=== PATIENT | male | born 1990 | race Hispanic/Latino ===

== ENCOUNTER 2024-01-09 18:05 | Emergency (ER) | payer SELFPAY ==
[2024-01-09 18:05] VITALS: BP 129/87; PULSE 68; RESP 16; TEMP 37.1; O2SAT 100
[2024-01-09 18:16] LABS: Glucose Point of Care 92 mg/dl (65-105)
--- NOTE | 2024-01-09 18:22 | ED.NEUROSD ---
HPI - Neuro Symptoms/Deficit General Chief Complaint: Headache Stated Complaint: Headache Time Seen by Provider: 01/09/24 18:05 Source: patient and family Mode of arrival: ambulatory Limitations: no limitations History of Present Illness HPI Narrative: Manual is a 33-year-old male patient presenting to the clinic today with complaints left posterior headache radiating into the neck, facial numbness, slurred speech, asymmetric smile, unable to close left eye, and eye twitching. He reports headache started 2 days ago however today around noon he developed numbness in the left side of his face with the other symptoms listed above. Reports eyes are watering. He rates his pain currently a 7/10. Daughter states he has been drooling from the left side when he drinks. Denies any dizziness, chest pain, or shortness of breath. Blood sugar was checked in the clinic and was 92. Patient denies any past medical or surgical history. Does not take any home medications. Daughter is interpreting for the patient. Related Data Allergies Allergy/AdvReac Type Severity Reaction Status Date / Time No Known Allergies Allergy Verified 01/09/24 18:29 Review of Systems Review of Systems: Pertinent positives per HPI. Patient denies any fever, chills, rash, dizziness, cough, runny nose, sore throat, shortness of breath, chest pain, palpitations, nausea, vomiting, diarrhea, constipation, abdominal pain, or any urinary issues. PMFSH Comments At the time of my signature, I reviewed and agree with the nursing past medical, surgical, social, and family history. There is no relevant family history pertinent to the patient complaint. Exam Narrative: General: Well-developed, well nourished, in no apparent distress Head: Normocephalic, atraumatic, left-sided facial droop with decreased sensation to the left side of the face-reports it feels numb when compared to the right side of his face, unable to close left eye tightly, unable to wrinkle the left-side of forehead Eyes: Pupils equally round and reactive to light bilaterally, EOM intact, sclera and conjunctive clear, no discharge, lids normal Ears: TMs intact and clear, ear canals clear, no drainage, grossly hearing normal. Nose: Nares patent, no discharge, no inflammation, no sinus tenderness. Mouth: Oropharynx without lesions or masses, good dentition, MMM. Tongue midline, even rise and fall of uvula Neck: Supple, trachea midline, no enlargement of anterior or posterior cervical nodes, no thyroid masses or goiter palpable. Cardio: Regular rate and rhythm, s1 and s2 normal, no murmur appreciated. Resp: Clear to auscultation bilaterally anteriorly and posteriorly, no rhonchi, rales, wheezing or rubs Musculoskeletal: No deformity, non-tender to palpation, grossly normal range of motion, muscle strength strong and equal, peripheral pulse strong, no edema, no cyanosis, normal gait and station Neuro: Alert and oriented x4 with normal speech, no focal deficits, cranial nerves I through XII intact, muscle strength 5 out of 5, sensation intact bilaterally, negative Romberg test Course Course Emergency Course: Portions of this record may have been created with voice recognition software. Level of Care: Express Care Visit Vital Signs Vital signs: Vital signs reviewed MDM - Neuro Symptoms/Deficit MDM Narrative Medical decision making narrative: At the time of visit patient is resting comfortably on the exam table. Patient appears to be nontoxic. Labs: Bedside glucose was 92 EKG: EKG shows normal sinus rhythm with heart rate of 85 beats per minute without ST elevation, depression, or T-wave inversion. Plan: Recommend transfer to the emergency room for further evaluation to rule out CVA, migraine, brain mass, Cook's palsy, or other etiology. Patient would like to be transferred to the [place] emergency room. Contacted Dr. Barroso at [facility] and she accepts patient for transfer. Patient t
--- NOTE | 2024-01-09 18:32 | ECG_ITS ---
SEE SCANNED COPY FOR CONFIRMED REPORT MTDD
== END 2024-01-09 18:20 | disposition short-term general hospital (02) ==
PROVIDERS: Emergency Provider Nurse Practitioner Family
DX: R47.81 Slurred speech (principal); R51.9 Headache, unspecified; R29.810 Facial weakness
CPT/HCPCS: 82948; 93005; 99213; G0463

== ENCOUNTER 2024-01-09 18:42 | Emergency (ER) | payer SELFPAY ==
--- NOTE | ~2024-01-09 | CT_ITS ---
EXAMINATION: CT brain wo con DATE: 01/09/2024 21:21 INDICATION: Headache and facial droop. TECHNIQUE: Computed tomography (CT) of the head was performed without intravenous contrast. Sagittal and coronal reconstructions were performed. The mA was adjusted according to patient size. Iterative reconstruction technique was employed. The dose-length product was 681.00 mGy-cm. COMPARISON: None FINDINGS: No acute intracranial hemorrhage, acute infarction or abnormal extra axial fluid collection. Ventricl es are normal and symmetric. No mass/mass effect. The orbits, paranasal sinuses and mastoid air cells are normal. IMPRESSION: 1. Normal head CT. Reviewed, dictated and finalized at location A. IMPRESSION: 1. Normal head CT.
[2024-01-09 18:42] VITALS: BP 144/85; PULSE 75; RESP 18; TEMP 36.5; O2SAT 97
[2024-01-09 20:25] VITALS: BP 142/86; PULSE 77; RESP 16; O2SAT 99
--- NOTE | 2024-01-09 20:54 | ECG_ITS ---
SEE SCANNED COPY FOR CONFIRMED REPORT MTDD
[2024-01-09 21:08] VITALS: PULSE 68; RESP 14; O2SAT 97
[2024-01-09 21:10] LABS: Basophils Percent Auto 0.1 % (0.2-1.2); Eosinophils Absolute Auto 0.1 K/mm3 (0-0.3); Eosinophils Percent Auto 1.3 % (0-4.4); Immature Granulocyte Absolute 0.01 K/mm3 (0.00-0.031); Immature Granulocyte Percent A 0.1 % (0-0.5); Lymphocytes Absolute Auto 2.15 K/mm3 (0.9-3.2); Lymphocytes Percent Auto 30.9 % (18.3-44.2); Mean Corpuscular HGB Conc 35.4 g/dl (32-36); Mean Corpuscular Hemoglobin 30.7 pg (26-34); Mean Corpuscular Volume 86.8 fl (80-100); Mean Platelet Volume 10.1 fl (7.4-10.4); Monocytes Absolute Auto 0.4 K/mm3 (0.1-0.6); Monocytes Percent Auto 6.2 % (2.6-8.5); Neutrophils Absolute Auto 4.3 K/mm3 (1.3-6.7); Neutrophils Percent Auto 61.4 % (45.5-73.1); Platelet Count Result 212 k/mm3 (150-375); Red Blood Count 5.53 M/mm3 (4.6-6.20); Red Cell Distribution Width 12.6 % (11.5-14.5)
[2024-01-09 21:22] LABS: Alanine Aminotransferase 127 U/L (6-50); Albumin Level 4.5 g/dL (3.5-5.1); Alkaline Phosphatase 74 U/L (38-126); Anion Gap 9 mmol/L (4-12); Aspartate Amino Transferase 65 U/L (17-59); Bilirubin,Total 0.9 mg/dL (0.2-1.3); Blood Urea Nitrogen 13 mg/dL (9-20); Calcium 8.8 mg/dL (8.4-10.2); Carbon Dioxide 25 mmol/L (22-30); Chloride 106 mmol/L (98-107); Estimated CRCL calculation 119 ml/min; Estimated Glomerular Filt Rate > 60; Glucose 102 mg/dL (65-110); Potassium 3.7 mmol/L (3.4-5.0); Sodium 140 mmol/L (137-145)
[2024-01-09 21:26] LABS: Partial Thromboplastin Time 32.6 Seconds (22.3-36.8)
[2024-01-09 21:32] LABS: Troponin I < 0.012 ng/mL (0.000-0.034)
--- NOTE | 2024-01-09 21:40 | ED.NEUROSD ---
HPI - Neuro Symptoms/Deficit General Chief Complaint: Neuro Symptoms/Deficit Stated Complaint: facial droop, since noon Time Seen by Provider: 01/09/24 20:54 Source: patient Mode of arrival: ambulatory Limitations: language barrier (patient's daughter in interpreting, which he prefers) History of Present Illness HPI Narrative: This is a 33 year old male that presents to the ER for left sided facial weakness. Ongoing since about noon today. Reports he has had a headache the last couple of days. He was seen at urgent care and sent to the ER for further evaluation. Denies vision changes, other focal numbness or weakness. Related Data Allergies Allergy/AdvReac Type Severity Reaction Status Date / Time No Known Allergies Allergy Verified 01/09/24 20:26 Review of Systems Review of Systems: CONSTITUTIONAL: Denies fever EYES: Denies visual changes GASTROINTESTINAL: Denies vomiting NEUROLOGIC: Reports headache, numbness, and weakness. All systems reviewed & are unremarkable except as noted in HPI and below PMFSH Past Medical History Medical History (Updated 01/09/24 @ 22:42 by Rosa Maria Cho PA-C) No active medical problems Social History Social History (Updated 01/09/24 @ 21:51 by Rosa Maria Cho PA-C) Smoking status: Current some day smoker Exam Narrative: GENERAL: Well-appearing, well-nourished, and in no acute distress. HEAD: Normocephalic, atraumatic. EYES: PERRLA and EOMI. ENT: Nares clear, no rhinorrhea or epistaxis. Mucous membranes moist. Oropharynx without tonsillar hypertrophy exudate or other lesions. Bilateral TMs pearly huitron non-bulging NECK: Supple. No adenopathy or masses. CHEST: Clear to auscultation. No respiratory distress. No wheezes rales or rhonchi HEART: Regular rate and rhythm. No murmur heard. Normal peripheral pulses. EXTREMITIES: Normal range of motion. No edema. SKIN: Warm, dry, no rash. NEURO: Alert and oriented x3. CN II-XII intact, with exception of CN VII. Inability to raise the eyebrow on the left. Difficulty blinking on the left PSYCH: Normal mood and affect Course Course Emergency Course: Patient and family updated on workup and agree with plan of care Vital Signs Vital signs: Vital Signs Temperature 97.7 F 01/09/24 18:42 Pulse Rate 75 01/09/24 18:42 Respiratory Rate 18 01/09/24 18:42 Blood Pressure 144/85 H 01/09/24 18:42 Pulse Oximetry 97 01/09/24 18:42 Oxygen Delivery Room Air 01/09/24 18:42 Temperature 97.7 F 01/09/24 18:42 Pulse Rate 67 01/09/24 22:22 Respiratory Rate 18 01/09/24 22:22 Blood Pressure 122/76 01/09/24 22:22 Pulse Oximetry 100 01/09/24 22:22 Oxygen Delivery Room Air 01/09/24 18:42 MDM - Neuro Symptoms/Deficit MDM Narrative Medical decision making narrative: Patient presents to the emergency department for left-sided facial weakness ongoing since about noon today. Reports a prodromal headache. 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 No other focal deficits. CBC without concerning findings. Metabolic panel with mild transaminitis. CT brain is normal. Patient and family updated on workup and agree with plan of care. Will be started on antiviral and glucocorticoids. He is to follow up with PCP. He was given warnings to return to the ER Differential Diagnosis Differential diagnosis: Likely cerebrovascular accident and other (Mcintosh palsy) Lab Data Attestation: I reviewed the patient's lab results. 01/09/24 21:04 01/09/24 21:04 Labs: Lab Results 01/09/24 Range/Units 21:04 WBC 7.0 (4.5-10.0) K/mm3 RBC 5.53 (4.6-6.20) M/mm3 Hgb 17.0 (14.0-18.0) g/dL Hct 48.0 (42.0-52.0) % MCV 86.8 (80-100) fl MCH 30.7 (26-34) pg MCHC 35.4 (32-36) g/dl RDW 12.6 (11.5-14.5) % Plt Count 212 (150-375) k/mm3 MPV 10.1 (7.4-10.4) fl Immature Gran % (Auto) 0.1 (0-0.5)
[2024-01-09 22:22] VITALS: BP 122/76; PULSE 67; RESP 18; O2SAT 100
[2024-01-09] MEDS: valACYclovir HCL 500 MG TABLET 1000 MG PO (23:00)
[2024-01-09] MEDS: predniSONE 20 MG TABLET 60 MG PO (23:01)
== END 2024-01-09 23:08 | disposition home or self-care (01) ==
PROVIDERS: Emergency Provider Physician Assistant; PCP Physician Assistant
DX: G51.0 Bell's palsy (principal); R74.01 Elevation of levels of liver transaminase levels
CPT/HCPCS: 36415; 70450; 80053; 82948; 84484; 85025; 85610; 85730; 93005; 99284; A9270; J7512

== ENCOUNTER 2025-03-16 10:24 | Inpatient (IN) | payer SELFPAY ==
[2025-03-16] VITALS (10 sets, daily range): BP systolic 120–138; BP diastolic 58–89; PULSE 93–108; RESP 16–19; TEMP 36.5–37.1; O2SAT 93–98; BMI 32.8
--- NOTE | ~2025-03-16 | US_ITS ---
EXAM: RENAL ULTRASOUND HISTORY: renal failure COMPARISON: None FINDINGS: Prominent pyramids are detected bilaterally without yasmany hydronephrosis. RIGHT KIDNEY: 12.6 x 4.9 x 6.0 cm. The parenchyma of the right kidney is increased in echogenicity. No bulky renal calculi. LEFT KIDNEY: 13.6 x 7.4 x 5.0 cm No renal calculi. The parenchyma of the left kidney is increased in echogenicity. BLADDER: Only minimally distended, with wall thickening (likely secondary to underdistention). Both u reteral jets were visualized. IMPRESSION: No hydronephrosis or renal calculi. Findings suggesting medical renal disease. Both ureteral jets are visualized. Reviewed, dictated and finalized at location A.
--- NOTE | ~2025-03-16 | CT_ITS ---
CLINICAL INDICATION: Epigastric pain COMPARISON: None. TECHNIQUE: Multiple contiguous axial images of the abdomen and pelvis were performed without the admi nistration of intravenous contrast The dose-length product (DLP) was 831.47 mGy-cm. Automated exposure control and iterative reconstruction technique were employed. FINDINGS/OBSERVATIONS: Visualized lower thorax: Bibasilar atelectasis. The remainder of the bilateral lung bases are clear. The heart is of normal size, without pericardial effusion. Small hiatal hernia is present. Liver: The liver demonstrates homogeneous attenuation and is enlarged measuring 20 cm in longitudinal dimens ion. Gallbladder and biliary system: The gallbladder is only minimally distended, and otherwise unremarkable. Pancreas: Loss of fatty lobulation of the pancreas, which may represent pancreatitis (in the appropri ate clinical setting), for which clinical correlation is needed. Spleen: The spleen demonstrates homogeneous attenuation and is enlarged measuring 14.3 cm in longitudinal dim ension. Kidneys: 8 mm nonobstructing calculus within the interpolar region of the right kidney. No hydronephrosis or additional renal calculi are detected bilaterally. Adrenal glands: Unremarkable. Gastrointestinal tract: A small amount of oral contrast is identified dependently within the stomach. Appendix: The air-filled appendix is of normal caliber (axial series, images 85 through 106). Vasculature: Unremarkable. Lymph nodes: Limited evaluation without intravenous contrast. Pelvic structures: The bladder is distended, and otherwise unremarkable. The prostate gland is not enlarged. Body wall and musculoskeletal: Small fat-containing umbilical hernia. No significant degenerative disease within the lower thoracic or lumbosacral spine. IMPRESSION: Loss of fatty lobulation of the pancreas which may represent acute pancreatitis (in the appropriate c linical setting). No discrete signs of inflammation within the lesser sac. Hepatosplenomegaly. Nonobstructing 8 mm right renal stone. Reviewed, dictated and finalized at location A. IMPRESSION: Loss of fatty lobulation of the pancreas which may represent acute pancreatitis (in the appropriate clinical setting). No discrete signs of inflammation withi n the lesser sac. Hepatosplenomegaly. Nonobstructing 8 mm right renal stone.
--- NOTE | ~2025-03-16 | XR_ITS ---
EXAMINATION: XR chest 2V DATE: 03/18/2025 18:01 INDICATION: Bacteremia TECHNIQUE: PA and lateral views of the chest were obtained. COMPARISON: CT dated 03/16/2025 FINDINGS: Mildly decreased lung volumes with minimal streaky bibasilar atelectasis. No other airspace opacities , pulmonary edema, pleural effusion or pneumothorax. The cardiomediastinal silhouette is normal. Mild thoracic dextrocurvature. IMPRESSION: 1. Small lung volumes with minimal bibasilar atelectasis. Reviewed, dictated and finalized at location A.
--- NOTE | ~2025-03-16 | US_ITS ---
US right upper quadrant INDICATION: Abdomen pain PROCEDURE: Realtime right upper abdominal ultrasound. COMPARISON: No prior studies for comparison. FINDINGS: Pancreas not visualized due to bowel gas. Liver echotexture is increased, consistent with fatty infiltration. There is normal directional flow in the portal vein. Gallbladder contains sludge. No gallstones, gallbladder wall thickening or pericholecystic fluid. Co mmon bile duct measures 3 mm. No sonographic Driscoll's sign. IMPRESSION: 1: Gallbladder sludge. 2: Fatty infiltration of the liver. Reviewed, dictated and finalized at location B.
--- NOTE | ~2025-03-16 | MR_ITS ---
EXAMINATION: MR MRCP wo/w con/w 3D wo ind DATE: 03/19/2025 11:14 INDICATION: Pancreatitis TECHNIQUE: Magnetic resonance imaging (MRI) of the abdomen was performed without and with 20 mL Multi aura intravenous contrast. Sequences included coronal T2-weighted SS-FSE, coronal T2-weighted FS SS- FSE, coronal T2-weighted FS FIESTA, axial T2-weighted FS FIESTA, axial T2-weighted FIESTA, sagittal T 2-weighted SS-FSE, axial T1-weighted dual-echo FSPGR, axial T2-weighted SS-FSE, axial T1-weighted LAV A, axial T2-weighted STIR FSE. Thick-slab T2-weighted FRFSE-XL images were obtained for magnetic reso nance cholangiopancreatography (MRCP). Rotating maximum intensity projection 3-D reconstructions of t he volumetric data were created by the technologist. Postcontrast sequences included a time course of axial T1-weighted LAVA. COMPARISON: CT abdomen pelvis dated 03/16/2025 FINDINGS: ABDOMEN MRI: Heart size is normal. No pericardial or pleural effusion. Mild discoid atelectasis at the dependent l ower lobes. Liver, gallbladder, spleen, pancreas, bilateral adrenal glands and right kidney are patricia l. 6 mm T2 hyperintense nonenhancing left renal cyst. Bowels including the appendix are normal. Small fat-containing umbilical hernia. No pathologically enlarged abdominal or upper pelvic lymphadenopath y. Mild to moderate disc height loss with fibrovascular degenerative endplate changes at L4-L5. Disc desiccation and mild disc height loss at T12-L1 and without significant disc height loss at L5-S1. [place] ne marrow signal is otherwise normal throughout. There are numerous subcentimeter enhancing subcutane ous nodules distribution circumferentially throughout the abdominal wall. ABDOMEN MRCP: Normal caliber common bile duct measuring 2 mm. No intrahepatic biliary ductal dilation. Main pancrea tic duct is also normal in caliber measuring up to a maximum 1 mm. No cholelithiasis or choledocholit hiasis. IMPRESSION: 1. Normal liver, gallbladder and pancreas with no gallstones and no intra or extrahepatic biliary or pancreatic ductal dilation. 2. Small fat-containing umbilical hernia. 2. Numerous nonspecific small enhancing subcutaneous nodules throughout the abdominal wall which has a wide differential including infectious inflammatory etiologies or neoplasm either benign such as ne urofibromas or malignant such as lymphoma or metastatic disease. Reviewed, dictated and finalized at location A. IMPRESSION: 1. Normal liver, gallbladder and pancreas with no gallstones and no intra or ex trahepatic biliary or pancreatic ductal dilation. 2. Small fat-containing umbilical hernia. 2. Numerous nonspecific small enhancing subcutaneous nodules throughout the abd ominal wall which has a wide differential including infectious inflammatory amy ologies or neoplasm either benign such as neurofibromas or malignant such as ly mphoma or metastatic disease.
--- NOTE | 2025-03-16 10:36 | PC.NURSE ---
Pt states unable to urinate at this time
--- OUTSIDE RECORDS SUMMARY | 2025-03-16 10:36 | XMS_ITS | Data Portability ---
Author Organization [facility] Address [address] [place] [address] Assessment No assessment recorded. Plan of Treatment Reminders Order Date Submit Date Provider Last Modified By Organization Details Last Modified Time Details Appointments None recorded. Lab None recorded. Referral None recorded. Procedures None recorded. Surgeries None recorded. Imaging None recorded. Medication Orders ondansetro n 8 mg disintegra ting tablet 2024 025 [facility] [address] [place], [address], 17:08:53 dicyclomin e 20 mg tablet 2024 025 [facility] [address] [place], [address], 17:07:02 ondansetro n 8 mg disintegra ting tablet 2024 025 [email or web address] Not available 17:36:31 Patient TargetsNo targets recorded. Patient Instructions Encounter Date Encounter Id Patient Instructions Last Modified By Organization Details Last Modified Time 03/13/2025 [id number] A healthy lifestyle: care instructions [email or web address] Not available 03/13/2025 17:05:27 Push clear fluids; drink slowly and do not drink extremely hot or cold beverages as this can cause increase in gastric upset. If you throw up; use the medication prescribed, then don't eat or drink anything for 30 minutes. Take sips of clear fluid then advance as tolerated. May start on soft foods such as mac n cheese, mashed potatoes or puddings. Medication as prescribed. Please follow up with your primary medical provider. [email or web address] Not available 03/13/2025 17:05:55 Reason for Referral None Reported. Medical Equipment None Reported. Allergies No known drug allergies Medications Name Sig Start Date Stop Date Status Note LastModified by Organization Details LastModified Time ondansetron 8 mg disintegrati ng tablet Place 1 tablet every 6 hours by translingua l route as needed for 10 days, for nausea and vomiting. 2024 active Not Available Not Available Not Avai lable dicyclomine 20 mg tablet Take 1 tablet 4 times a day by oral route as needed, for abdominal colic. 2024 active Not Available Not Available Not Avai lable Vitals Date Recorded Body weight Body temperature Respiratory rate Heart rate Oxygen saturation Oxygen saturation in Arterial blood by Pulse oximetry Body mass index (BMI) Body height Systolic And Diastolic Provider Name and Address Organization Details Last Updated DateTime 90763.9 4 g 98.7 [degF] 20 /min 102 /min 99 % 99 % 33.5 kg/m2 171.45 cm 109/82 mm[Hg] Christi Laws MA [facility] 16:48:12 Social History Question Answer Notes LastModified by Organizat ion Details LastModified Time Tobacco Smoking Status Never Smoker Christi Laws MA null, [facility] 03/13/2025 16:49:26 What Was The Date Of Your Most Recent Tobacco Screening? 03/13/2025 [email or web address] Information not available 03/13/2025 Sex: Unknown Functional Status None recorded. Mental Status None recorded. Family History Nothing Reported. Medical History No medical history recorded. Past Encounters Encounter ID Performer Location Encounter Start Date Encounter Closed Date Diagnosis/Indication Diagnosis SNOMED-CT Code Diagnosis ICD10 Code Diagnosis Note [id number] JEANNE MARIE MD COUNTS INCLUDE 234 BEDS AT THE [facility] [address] [place] [address] 03/13/2025 16:40:45 03/15/2025 10:50:48 Obese class I [id number] 38056 E66.811 E66.3 Nausea and vomiting 1691999 R11.2 Was given PO challenge after receiving Zofran. Tolerating fluids at this time. Would like to go home. Diarrhea 38662837 R19.7 Abdominal pain 34515880 R10.84 Viral gastroenteritis 11 [id number] A08.4 Health Concerns Section Related Observation LastModified by Organization Gudelia henderson LastModified Time None Recorded Concern Status LastModified by Organization Details LastModified Time None Recorded Advance Directives Directive None Recorded Payers Insurance Date Sequence Insurance Name Policy Number Policy Ash Covered Member ID Ash Member ID Guarantor Name 03/13/2025 SLIDING FEE SCHEDULE - DISCOUNT Satnam Case 03/13/2025 1 *SELF PAY* Jamal Case
--- NOTE | 2025-03-16 11:02 | PC.NURSE ---
Report given to Magda Garcia RN all questions answered
[2025-03-16 11:09] LABS: Alanine Aminotransferase 59 U/L (6-50); Albumin Level 4.7 g/dL (3.5-5.1); Alkaline Phosphatase 73 U/L (38-126); Anion Gap 19 mmol/L (4-12); Aspartate Amino Transferase 61 U/L (17-59); Bilirubin,Total 1.9 mg/dL (0.2-1.3); Blood Urea Nitrogen 98 mg/dL (9-20); Calcium 8.5 mg/dL (8.4-10.2); Carbon Dioxide 25 mmol/L (22-30); Chloride 76 mmol/L (98-107); Estimated CRCL calculation 27 ml/min; Estimated Glomerular Filt Rate 17; Glucose 151 mg/dL (65-110); Potassium 2.6 mmol/L (3.4-5.0); Sodium 120 mmol/L (137-145); Total Protein 9.0 g/dL (6.3-8.2)
[2025-03-16] MEDS: SODIUM CHLORIDE 0.9% IV 1,000 ML 999 ML IV CONT ×3 (11:13→12:14)
[2025-03-16] MEDS: ONDANSETRON INJ 4 MG/2 ML VIAL IV PUSH (11:15)
[2025-03-16] MEDS: MORPHINE SULFATE (*CRX) 4 MG/ML INJ IV PUSH (11:15)
[2025-03-16 11:16] LABS: Hematocrit 55.2 % (42.0-52.0); Hemoglobin 20.6 g/dL (14.0-18.0); Mean Corpuscular HGB Conc 37.3 g/dl (32-36); Mean Corpuscular Hemoglobin 30.3 pg (26-34); Mean Corpuscular Volume 81.3 fl (80-100); Platelet Count Result 254 k/mm3 (150-375); Red Blood Count 6.79 M/mm3 (4.6-6.20); White Blood Count 10.1 K/mm3 (4.5-10.0)
[2025-03-16 11:33] LABS: Lipase 2516 U/L (23-300)
[2025-03-16] MEDS: KCL 20 MEQ/SW 100 ML 100 ML 50 MEQ IVPB ×2 (11:33→15:53)
--- NOTE | 2025-03-16 11:35 | PC.NURSE ---
Ultrasound at bedside
[2025-03-16 11:41] LABS: Band Neutrophils Percent 21 % (0-6); Lymphocytes Absolute Manual 0.80 K/mm3 (1.1-4.5); Lymphocytes Percent Manual 8 % (18-44); Monocytes Absolute Manual 1.11 K/mm3 (0.1-0.90); Monocytes Percent Manual 11 % (3-9); Neutrophils Absolute Manual 8.18 K/mm3 (1.3-6.7); Neutrophils Percent Manual 60 % (46-73); Total Cells Counted 100
[2025-03-16 11:42] LABS: Schistocytes None Seen
--- NOTE | 2025-03-16 11:57 | ED_ITS ---
HPI - Nausea/Vomiting/Diarrhea General Chief complaint: Abdominal Pain Stated complaint: n/v/d Time Seen by Provider: 03/16/25 10:37 History of Present Illness HPI Narrative: Patient is a 34-year-old male who presents to the ER with nausea and vomiting over last 5 days. Three episodes of diarrhea a day. Has epigastric discomfort without radiation. Cannot identify aggravating or alleviating factors. Has been on dicyclomine and Zofran that were prescribed outpatient without improvement of symptoms. Related Data Allergies Allergy/AdvReac Type Severity Reaction Status Date / Time No Known Allergies Allergy Verified 03/16/25 10:32 [facility] Past Medical History Medical History (Updated 03/16/25 @ 17:12 by Galen Zaidi MD) No active medical problems Social History Social History (Updated 01/09/24 @ 21:51 by Rosa Maria Cho PA-C) Smoking status: Current some day smoker Exam 2 Narrative: GENERAL: Well-appearing, well-nourished, and in no acute distress. HEAD: Normocephalic, atraumatic. ENT: Mucous membranes moist. NECK: Supple. CHEST: Clear to auscultation. No respiratory distress. HEART: Regular rate and rhythm. Normal peripheral pulses. ABDOMEN: Soft, moderate discomfort with palpation to epigastrium and RUQ, nondistended. EXTREMITIES: Normal range of motion. No edema. SKIN: Warm, dry, no rash. NEURO: Alert and oriented x3. PSYCH: Normal mood and affect. Course Course Emergency Course: GI and General surgery consulted. Patient educated on diagnosis and treatment plan. Mild improvement in pain with morphine. Patient will be kept NPO and hydrated. Will receive IV potassium. General surgery requests noncontrast CT for continued evaluation of the abdomen. Suspect renal failure be prerenal due to dehydration. Patient started on broad-spectrum antibiotics for possible cholecystitis. No recommendation for MRCP at this time. Vital Signs Vital signs: Vital Signs Temperature 97.8 F 03/16/25 10:27 Pulse Rate 108 H 03/16/25 10:27 Respiratory Rate 17 03/16/25 10:27 Blood Pressure 136/89 03/16/25 10:27 Pulse Oximetry 98 03/16/25 10:27 Oxygen Delivery Room Air 03/16/25 10:27 Temperature 97.8 F 03/16/25 10:27 Pulse Rate 94 03/16/25 14:30 Respiratory Rate 19 03/16/25 14:30 Blood Pressure 137/81 03/16/25 14:30 Pulse Oximetry 96 03/16/25 14:30 Oxygen Delivery Room Air 03/16/25 10:27 MDM - Nausea/Vomiting/Diarrhea Lab Data 03/16/25 10:36 03/16/25 10:36 Labs: Lab Results 03/16/25 03/16/25 03/16/25 Range/Units 10:36 12:23 14:15 WBC 10.1 H (4.5-10.0) K/mm3 RBC 6.79 H (4.6-6.20) M/mm3 Hgb 20.6 H D (14.0-18.0) g/dL Hct 55.2 H (42.0-52.0) % MCV 81.3 (80-100) fl MCH 30.3 (26-34) pg MCHC 37.3 H (32-36) g/dl RDW 12.2 (11.5-14.5) % Plt Count 254 (150-375) k/mm3 MPV 11.1 H (7.4-10.4) fl Immature Gran % (Auto) Not Reportable Neut % (Auto) Not Reportable Lymph % (Auto) Not Reportable Kleberg % (Auto) Not Reportable Eos % (Auto) Not Reportable Baso % (Auto) Not Reportable Lymph # (Auto) Not Reportable Kleberg # (Auto) Not Reportable Eos # (Auto) Not Reportable Baso # (Auto) Not Reportable Abs Immat Gran (auto) Not Reportable Absolute Neuts (auto) Not Reportable Absolute Nucleated RBC Not Reportable Total Counted 100 Neutrophils % (Manual) 60 (46-73) % Band Neutrophils % 21 H (0-6) % Lymphocytes % (Manual) 8 L (18-44) % Monocytes % (Manual) 11 H (3-9) % Nucleated RBC % Not Reportable Abs Neuts (Manual) 8.18 H (1.3-6.7) K/mm3 Abs Lymphs (Manual) 0.80 L (1.1-4.5) K/mm3 Abs Monocytes (Manual) 1.11 H (0.1-0.90) K/mm3 Platelet Estimate Adequate (Adequate) Schistocytes None seen Sodium 120 L (137-145) mmol/L Potassium 2.6 L* (3.4-5.0) mmol/L Chloride 76 L (98-107) mmol/L Carbon Dioxide 25 (22-30) mmol/L Anion Gap 19 H (4-12) mmol/L BUN 98 H D (9-20) mg/dL Creatinine 4.05 H (0.7-1.3) mg/dL Estim Creat Clear Calc 27 ml/min Estimated GFR 17 L (59 - ) Glucose 151 H (65-110) mg/dL Lactic Acid 1.8 (0.7-2.0) mmol/L Calcium 8.5 (8.4-10.2) mg/dL Total Bilirubin 1.9 H (0.2-1.3) mg/dL AST 61 H (17-59) U/L ALT 59 H (6-50) U/L Alkaline Phosphatase 73 (38-126) U/L Total Protein 9.0 H (6.3-8.2) g/dL Albumin 4.7 (3.5-5.1) g/dL Lipase 2516 H (23-300) U/L Urine Color Yellow (Yellow) Urine Appearance Clear (Clear) Urine pH 5.5 (5.0-9.0) Ur Specific [place] 1.019 (1.001-1.035) Urine Protein 1+ H (Negative) mg/dL Urine Glucose (UA) Negative (Negative) mg/dL Urine Ketones Negative (Negative) mg/dL Ur Blood (Man) Trace (Negative) Urine Nitrate Negative (Negative) Urine Bilirubin Negative (Negative) Urine Urobilinogen 0.2 (<2.0) mg/dL Leukocyte Esterase Rfl Negative (Negative) ASHLEY/UL Urine RBC 0-2 (0-2) /hpf Urine WBC 0-5 (0-3) /hpf Ur Squamous Epith Cells None seen (Few) /hpf Urine Bacteria None seen /hpf Urine Casts 3-5 Imaging Data Radiologist's impression: ITS Impressions Upper Quadrant Ultrasound 03/16/25 12:29 IMPRESSION: 1: Gallbladder sludge. 2: Fatty infiltration of the liver. Renal Ultrasound 03/16/25 12:31 IMPRESSION: No hydronephrosis or renal calculi. Findings suggesting medical renal disease. Both ureteral jets are visualized. Abdomen/Pelvis CT 07/29/25 15:23 IMPRESSION: Loss of fatty lobulation of the pancreas which may represent acute pancreatitis (in the appropriate clinical setting). No discrete signs of inflammation within the lesser sac. Hepatosplenomegaly. Nonobstructing 8 mm right renal stone. Discharge Plan Discharge Clinical Impression: Hypokalemia, Pancreatitis, Biliary sludge, Cholecystitis, Acute renal failure Patient Disposition: Still a Patient Condition: Stable
[2025-03-16] MEDS: POTASSIUM CHLORIDE 20 MEQ ER TABLET 40 MEQ PO (12:10)
[2025-03-16] MEDS: metroNIDAZOLE 500 MG/ISO 100ML 500 MG/100 ML BAG 100 MG IVPB ×2 (13:48→21:55)
[2025-03-16] MEDS: cefTRIAXone 1 GM in SODIUM CHLORIDE 0.9% IV 50 ML 100 ML IVPB (13:49)
[2025-03-16 14:27] LABS: Add Urine Microscopic? YES; Appearance Urine Clear (Clear); Glucose Urine UA Negative (Negative); Leukocyte Esterase Ur Negative LEU/UL (Negative); Nitrate Urine Negative (Negative); Specific Grav Ur 1.019 (1.001-1.035)
--- NOTE | 2025-03-16 15:11 | P.CONGS_ITS ---
Assessment and Plan Assessment and plan (1) Abnormal ultrasound of gallbladder: Code(s): R93.2 - Abnormal findings on diagnostic imaging of liver and biliary tract Status: Acute Assessment and Plan: Patient presented to the ED with 5 days of epigastric pain, nausea/vomiting, and diarrhea. Right upper quadrant ultrasound demonstrated gallbladder sludge with fatty infiltration of the liver. Bilirubin 1.9, AST 61, ALT 59. Abdominal exam benign with no tenderness to palpation anywhere on the abdomen. Negativ e Ash[place] sign. Lipase in the . CT of the abdomen and pelvis was ordered to further evaluate. Patient will be admitted for treatment of MATTI, so we will continue to follow when he is transferred to the floor. Continue ceftriaxone and Flagyl. No immediate surgical intervention at this time. Could consider laparoscopic cholecystectomy outpatient, or once lipase levels return to normal. (2) Acute kidney injury: Code(s): N17.9 - Acute kidney failure, unspecified Status: Acute Assessment and Plan: Patient since last , as he is unable to keep anything down without emesis. He states that he has been trying to drink Gatorade. BUN 98, creatinine 4.05. Renal ultrasound demonstrated no hydronephrosis or renal calculi, findings suggesting medical renal disease. Patient is being admitted. Manage per hospitalist recs. (3) Elevated lipase: Code(s): R74.8 - Abnormal levels of other serum enzymes Status: Acute Assessment and Plan: Lipase 2516. Continue with IV rehydration and pain management. (4) Hypokalemia: Code(s): E87.6 - Hypokalemia Status: Acute Assessment and Plan: Potassium given in ED. Will continue to monitor with daily labs. Plan Discussed patient's case and plan of care with Dr. Beltran. History of Present Illness Consult details Consult date: 03/16/25 Reason for consult: other (Gallbladder issues) Requesting physician: Galen Zaidi MD Narrative: Patient is a 34-year-old primarily Persian-speaking otherwise healthy male who we have been asked to see in surgical consultation after right upper quadrant ultrasound demonstrated gallbladder sludge and fatty infiltration of the liver. Patient states that he 1st began having middle epigastric pain, as well as nausea and vomiting last (5 days ago). The pain did not radiate to his back or anywhere else in his body. He noted associated diarrhea, with last bowel movement this morning. He also notes some dizziness and lightheadedness. Last episode emesis yesterday. Has not eaten a full meal since symptom onset, as he becomes nauseous and is not able to keep any food down. Workup in the ED included right upper quadrant ultrasound which demonstrated gallbladder sludge and fatty infiltration of the liver. Labs significant for white blood cell count of 10.1 with left shift. Sodium 120. Potassium low at 2.6. Given potassium chloride orally and through IV. Lipase elevated at 2516. AKA noted with BUN and creatinine significantly elevated. Liver enzymes also increased. Patient has never had any abdominal surgeries. No recent travel out of the country, sick contacts, suspicious foods. Patient denies heavy alcohol use. Notes last consumption to be a few shots of tequila 2 weeks ago (1 week prior to symptom onset). Upon interview, patient notes that he is feeling better with decreased abdominal pain. [facility] Past Medical History Medical History (Updated 03/16/25 @ 15:33 by Arely Vásquez PA-C) No active medical problems Social History Social History (Updated 01/09/24 @ 21:51 by Rosa Maria Cho PA-C) Smoking status: Current some day smoker Meds Home Medications and Allergies Home Medications ?Medication ?Instructions ?Recorded ?Confirmed ?Type prednisone 20 mg tablet 60 mg (3 x 20 mg) PO DAILY 6 days 01/09/24 Rx #18 tabs valacyclovir 1 gram tablet 1,000 mg PO Q8H 1 week #21 tabs 01/09/24 Rx Allergies Allergy/AdvReac Type Severity Reaction Status Date / Time No Known Allergies Allergy Verified 03/16/25 10:32 Vital Signs Vital Signs - 24 hr 03/16/25 10:27 03/16/25 11:30 03/16/25 12:00 Temperature 97.8 F Pulse Rate 108 H 93 94 Respiratory Rate 17 16 17 Blood Pressure 136/89 121/82 120/82 Pulse Oximetry 98 93 96 Oxygen Delivery Room Air 03/16/25 13:00 03/16/25 14:30 Temperature Pulse Rate 94 94 Respiratory Rate 17 19 Blood Pressure 137/84 137/81 Pulse Oximetry 97 96 Oxygen Delivery Exam 2 Const: General: comfortable and no acute distress Eyes: General: appearance normal, both eyes and all related structures Neck: Neck: supple Resp: Effort & Inspection: normal respiratory effort Cardio: Rate: regular rate GI: Inspection: non-distended GI Palp: Yes Soft to palpation, No Tenderness to palpation present (GI), No Guarding due to palpation present (GI) and No Hernia present Auscultation: normal bowel sounds : General: Yes bladder normal to palpation Skin: General skin exam: normal color and no rashes or lesions noted Neuro: Speech: normal speech Sensory Exam: normal sensation Extrem: General: normal to inspection Psych: Mental Status: mental status grossly normal Results Labs 03/16/25 10:36 03/16/25 10:36 Labs: Abnormal lab results 03/16/25 03/16/25 Range/Units 10:36 14:15 WBC 10.1 H (4.5-10.0) K/mm3 RBC 6.79 H (4.6-6.20) M/mm3 Hgb 20.6 H D (14.0-18.0) g/dL Hct 55.2 H (42.0-52.0) % MCHC 37.3 H (32-36) g/dl MPV 11.1 H (7.4-10.4) fl Band Neutrophils % 21 H (0-6) % Lymphocytes % (Manual) 8 L (18-44) % Monocytes % (Manual) 11 H (3-9) % Abs Neuts (Manual) 8.18 H (1.3-6.7) K/mm3 Abs Lymphs (Manual) 0.80 L (1.1-4.5) K/mm3 Abs Monocytes (Manual) 1.11 H (0.1-0.90) K/mm3 Sodium 120 L (137-145) mmol/L Potassium 2.6 L* (3.4-5.0) mmol/L Chloride 76 L (98-107) mmol/L Anion Gap 19 H (4-12) mmol/L BUN 98 H D (9-20) mg/dL Creatinine 4.05 H (0.7-1.3) mg/dL Estimated GFR 17 L (59 - ) Glucose 151 H (65-110) mg/dL Total Bilirubin 1.9 H (0.2-1.3) mg/dL AST 61 H (17-59) U/L ALT 59 H (6-50) U/L Total Protein 9.0 H (6.3-8.2) g/dL Lipase 2516 H (23-300) U/L Urine Protein 1+ H (Negative) mg/dL Diabetes panel 03/16/25 Range/Units 10:36 Sodium 120 L (137-145) mmol/L Potassium 2.6 L* (3.4-5.0) mmol/L Chloride 76 L (98-107) mmol/L Carbon Dioxide 25 (22-30) mmol/L BUN 98 H D (9-20) mg/dL Creatinine 4.05 H (0.7-1.3) mg/dL Glucose 151 H (65-110) mg/dL Calcium 8.5 (8.4-10.2) mg/dL AST 61 H (17-59) U/L ALT 59 H (6-50) U/L Alkaline Phosphatase 73 (38-126) U/L Total Protein 9.0 H (6.3-8.2) g/dL Albumin 4.7 (3.5-5.1) g/dL Calcium panel 03/16/25 Range/Units 10:36 Calcium 8.5 (8.4-10.2) mg/dL Albumin 4.7 (3.5-5.1) g/dL Pituitary panel 03/16/25 Range/Units 10:36 Sodium 120 L (137-145) mmol/L Potassium 2.6 L* (3.4-5.0) mmol/L Chloride 76 L (98-107) mmol/L Carbon Dioxide 25 (22-30) mmol/L BUN 98 H D (9-20) mg/dL Creatinine 4.05 H (0.7-1.3) mg/dL Glucose 151 H (65-110) mg/dL Calcium 8.5 (8.4-10.2) mg/dL Adrenal panel 03/16/25 Range/Units 10:36 Sodium 120 L (137-145) mmol/L Potassium 2.6 L* (3.4-5.0) mmol/L Chloride 76 L (98-107) mmol/L Carbon Dioxide 25 (22-30) mmol/L BUN 98 H D (9-20) mg/dL Creatinine 4.05 H (0.7-1.3) mg/dL Glucose 151 H (65-110) mg/dL Calcium 8.5 (8.4-10.2) mg/dL Total Bilirubin 1.9 H (0.2-1.3) mg/dL AST 61 H (17-59) U/L ALT 59 H (6-50) U/L Alkaline Phosphatase 73 (38-126) U/L Total Protein 9.0 H (6.3-8.2) g/dL Albumin 4.7 (3.5-5.1) g/dL All other labs normal.
[2025-03-16] MEDS: SODIUM CHLORIDE 0.9% IV 1,000 ML 150 ML IV CONT ×2 (15:46→21:55)
--- NOTE | 2025-03-16 18:28 | PM.IMHP ---
H&P: HPI History of Present Illness Date/Time: 03/16/25 18:28 Chief Complaint: Abdominal Pain Narrative: 34 y/o M with no significant PMH presents here with abdominal pain, nausea, vomiting. The patient presents here from home on 03/16 for further evaluation of abdominal pain, nausea, vomiting, and diarrhea. The patient reports onset approximately 5 days ago on 03/11. He describes the abdominal pain as sharp, severe, nonradiating, constant but varies in severity, and no aggravating factors or alleviating factors. It is accompanied by nausea, vomiting, and diarrhea as well as some dizziness, headache, and lightheadedness. He he has subsequently had poor p.o. intake secondary to the nausea and vomiting and has not been able to keep a full meal down since onset. He denies any associated fever. He denies regular heavy alcohol use, did have a few shots of Tequila a few weeks ago. He denies any prior knowledge of high cholesterol. Initial VS at presentation: 97.8? F, HR 108, R 17, 136/89, and 98% on RA. ED workup showed: WBC 10.1, hemoglobin 20.6 (17 in 2023), sodium 120, potassium 2.6, creatinine 4.05 and GFR 14 (0.9 and normal GFR on 01/09/2024), glucose 151, lactic 1.8, total bilirubin 1.9, AST 61, ALT 59, lipase 2516. UA showed 1+ protein otherwise unremarkable. Right upper quadrant US showed gallbladder sludge and fatty infiltration of the liver. Renal ultrasound showed no hydronephrosis or renal calculi, findings suggesting medical renal disease, both ureteral jets are visualized. CT of the abdomen/pelvis showed loss of fatty lobulation of the pancreas which may represent acute pancreatitis, no discrete signs of inflammation within the lesser sac, hepatosplenomegaly, nonobstructing 8 mm right renal stone. Review of Systems Review of Systems: All systems reviewed & are unremarkable except as noted in HPI and below [facility] Past Medical History Medical History (Updated 03/16/25 @ 23:52 by Shereen Chow APRN) GERD (gastroesophageal reflux disease) Social History Social History Smoking status: Current some day smoker Smokeless tobacco user: chewing tobacco Additional smoking assessment comments: Smokes a couple times a month. Alcohol intake: current Drinks per week: 3 Substance use: never Lack of Transportation: No Lack of Food: Never True Current Housing: I Have Housing Concerned About Future Housing: No Difficulty Paying Gas/Electric Bills: No Difficulty Paying for Meds: No Currently Unemployed: No Education: High School Diploma/GED Difficulty w/ Childcare or Family Care: No Spiritual care concerns: No Meds Home Medications and Allergies Home Medications ?Medication ?Instructions ?Recorded ?Confirmed ?Type prednisone 20 mg tablet 60 mg (3 x 20 mg) PO DAILY 6 days 01/09/24 03/16/25 Rx #18 tabs valacyclovir 1 gram tablet 1,000 mg PO Q8H 1 week #21 tabs 01/09/24 03/16/25 Rx omeprazole 10 mg capsule,delayed 20 mg PO PRN 03/16/25 03/16/25 History release Allergies Allergy/AdvReac Type Severity Reaction Status Date / Time No Known Allergies Allergy Verified 03/16/25 10:32 Vital Signs Vital Signs - 24 hr 03/16/25 10:27 03/16/25 11:30 03/16/25 12:00 Temperature 97.8 F Pulse Rate 108 H 93 94 Respiratory Rate 17 16 17 Blood Pressure 136/89 121/82 120/82 Pulse Oximetry 98 93 96 Oxygen Delivery Room Air 03/16/25 13:00 03/16/25 14:30 03/16/25 17:11 Temperature Pulse Rate 94 94 99 Respiratory Rate 17 19 16 Blood Pressure 137/84 137/81 138/74 Pulse Oximetry 97 96 96 Oxygen Delivery 03/16/25 18:11 Temperature 98.7 F Pulse Rate 101 H Respiratory Rate 16 Blood Pressure 131/78 Pulse Oximetry 98 Oxygen Delivery Exam Const: General: comfortable and no acute distress Other: , male, nontoxic appearance HENMT: Face/Nose/Sinus: Normal nares present Mouth: Yes moist mucous membranes Eyes: General: appearance normal, both eyes and all related structures Sclera: sclerae normal Pupils: Equal, round and reactive pupils present EOM: EOMs intact bilaterally Resp: Effort & Inspection: normal respiratory effort Auscultation: clear to auscultation bilaterally Cardio: Rate: regular rate Rhythm: regular rhythm Other: S1-S2 present without murmur, rub, ectopy GI: Other: Mild tenderness to palpation in the right upper quadrant. Abdomen otherwise soft and nondistended. Normoactive bowel sounds in all quadrants. Skin: General skin exam: normal color and no rashes or lesions noted Wounds: no wounds Neuro: Speech: normal speech Motor exam (neuro): 5/5 motor strength present throughout Sensory Exam: normal sensation Other: A&O x4 Extrem: General: normal to inspection Psych: Mental Status: mental status grossly normal Affect: normal affect Other: Good insight and judgment, pleasant H&P: Results Labs Labs: Short CBC 03/16/25 Range/Units 10:36 WBC 10.1 H (4.5-10.0) K/mm3 Hgb 20.6 H D (14.0-18.0) g/dL Hct 55.2 H (42.0-52.0) % Plt Count 254 (150-375) k/mm3 BMP 03/16/25 10:36 Sodium 120 L Potassium 2.6 L* Chloride 76 L Carbon Dioxide 25 BUN 98 H D Creatinine 4.05 H Glucose 151 H Calcium 8.5 Liver Function 03/16/25 Range/Units 10:36 Total Bilirubin 1.9 H (0.2-1.3) mg/dL AST 61 H (17-59) U/L ALT 59 H (6-50) U/L Alkaline Phosphatase 73 (38-126) U/L Albumin 4.7 (3.5-5.1) g/dL Urine 03/16/25 Range/Units 14:15 Urine Color Yellow (Yellow) Urine Appearance Clear (Clear) Urine pH 5.5 (5.0-9.0) Ur Specific [place] 1.019 (1.001-1.035) Urine Protein 1+ H (Negative) mg/dL Urine Glucose (UA) Negative (Negative) mg/dL Assessment and Plan Assessment and plan (1) Pancreatitis: Qualifiers: Acute pancreatitis complication: uninfected necrosis Chronicity: acute Pancreatitis type: unspecified pancreatitis type Qualified Code(s): K85.91 - Acute pancreatitis with uninfected necrosis, unspecified Code(s): K85.90 - Acute pancreatitis without necrosis or infection, unspecified Status: Acute Assessment and Plan: - acute, no prior history - NPO and IV fluids: 3L bolus -> 75 mL/hour - trend lipase, currently: 2516 - AST 61, ALT 59, total bilirubin 1.9. trend LFTs. - check lipid panel - pain control with - antiemetics p.r.n. - CT abd/pelvis: Loss of fatty lobulation of the pancreas which may represent acute pancreatitis (in the appropriate clinical setting). No discrete signs of inflammation within the lesser sac. Hepatosplenomegaly. Nonobstructing 8 mm right renal stone. - reviewed home medications, no medications that would predispose patient to pancreatitis noted. Denied heavy/regular alcohol use. - GI and General surgery consulted, see general surgery note. No surgical i intervention indicated at this time, may need outpatient cholecystectomy. (2) Acute kidney injury: Code(s): N17.9 - Acute kidney failure, unspecified Status: Acute Assessment and Plan: - renal function upon admission: Creatinine 2.04, BUN 98, GFR 17. Repeat this evening showed a creatinine of 2.04, BUN 66, GFR 38. - renal US No hydronephrosis or renal calculi. Findings suggesting medical renal disease. Both ureteral jets are visualized. - suspect kidney injury secondary to hypovolemia/dehydration as evidenced by an elevated hemoglobin and electrolyte derangements. Improving with IV fluids, continued. Will forego further workup at this time. Continue to trend renal function. (3) Biliary sludge: Code(s): K83.8 - Other specified diseases of biliary tract Status: Acute Assessment and Plan: - right upper quadrant US: 1: Gallbladder sludge. 2: Fatty infiltration of the liver. - CT showed the gallbladder was only minimally distended otherwise unremarkable - general surgery consulted -> recommended continuation of ceftriaxone and Flagyl, no immediate surgical intervention indicated at this time. Could consider laparoscopic cholecystectomy outpatient once lipase levels have returned to normal. - monitor LFTs (4) Hypokalemia: Code(s): E87.6 - Hypokalemia Status: Resolved Assessment and Plan: - K 2.6 upon admission, given 40 KCL IVPB and 40 KCL p.o. Recheck this evening shows hypokalemia is resolved with a potassium of 3.6 - monitor (5) Hyponatremia: Code(s): E87.1 - Hypo-osmolality and hyponatremia Status: Acute Assessment and Plan: - Na 120 upon admission. Given 3 L bolus of NS, now 125. Continue IV fluids at 75 mL/hour. - suspect reduction secondary to poor PO intake - monitor (6) Kidney stone on right side: Code(s): N20.0 - Calculus of kidney Status: Acute Assessment and Plan: - A 8 mm nonobstructing calculus within the interpolar region of the right kidney with no hydronephrosis or additional renal calculi are detected bilaterally noted on CT. - UA showed no signs of infection or blood Plan Glucose noted to be 151 upon admission. May be secondary to poor p.o. intake, will check A1c. Patient will also need work note at time of discharge. Diet: NPO GI Prophylaxis: Continue home omeprazole DVT Prophylaxis: SCDs IV fluids: 3L bolus -> 75 mL/hour Lines/Tubes: Peripheral IV Code Status: Full code Quality VTE Prophylaxis VTE prophylaxis: mechanical ordered Hospitalist MIPS Advance Care Plan I have confirmed that the patient's Advanced Care Plan is present, code status is documented, or surrogate decision maker is listed in patient medical record.: Yes Medication Reconciliation I have utilized all available resources to obtain, update and review the patients current medications (includes all prescriptions, OTC, herbals, cannabis, and nutritional supplements).: Yes
[2025-03-16 19:13] LABS: Anion Gap 10 mmol/L (4-12); Blood Urea Nitrogen 66 mg/dL (9-20); Calcium 7.6 mg/dL (8.4-10.2); Carbon Dioxide 24 mmol/L (22-30); Chloride 91 mmol/L (98-107); Estimated CRCL calculation 53 ml/min; Estimated Glomerular Filt Rate 38; Glucose 122 mg/dL (65-110); Potassium 3.6 mmol/L (3.4-5.0); Sodium 125 mmol/L (137-145)
[2025-03-17] VITALS (10 sets, daily range): BP systolic 118–131; BP diastolic 60–74; PULSE 89–113; RESP 14–16; TEMP 36.2–36.4; O2SAT 94–99
[2025-03-17] MEDS: metroNIDAZOLE 500 MG/ISO 100ML 500 MG/100 ML BAG 100 MG IVPB ×3 (05:12→21:43)
[2025-03-17] MEDS: SODIUM CHLORIDE 0.9% IV 1,000 ML 150 ML IV CONT ×2 (05:12→13:15)
[2025-03-17 07:11] LABS: Hematocrit 44.5 % (42.0-52.0); Hemoglobin 16.0 g/dL (14.0-18.0); Mean Corpuscular HGB Conc 36.0 g/dl (32-36); Mean Corpuscular Hemoglobin 30.3 pg (26-34); Mean Corpuscular Volume 84.3 fl (80-100); Platelet Count Result 217 k/mm3 (150-375); Red Blood Count 5.28 M/mm3 (4.6-6.20); White Blood Count 9.2 K/mm3 (4.5-10.0)
[2025-03-17 07:21] LABS: Hemoglobin A1C 5.1 % (<5.7)
[2025-03-17 07:36] LABS: Alanine Aminotransferase 57 U/L (6-50); Albumin Level 3.6 g/dL (3.5-5.1); Alkaline Phosphatase 60 U/L (38-126); Anion Gap 8 mmol/L (4-12); Aspartate Amino Transferase 60 U/L (17-59); Bilirubin,Total 1.9 mg/dL (0.2-1.3); Blood Urea Nitrogen 43 mg/dL (9-20); Calcium 7.9 mg/dL (8.4-10.2); Carbon Dioxide 25 mmol/L (22-30); Chloride 93 mmol/L (98-107); Cholesterol 144 mg/dL (0-200); Estimated CRCL calculation 77 ml/min; Estimated Glomerular Filt Rate 58; Glucose 116 mg/dL (65-110); HDL Direct 20 mg/dL; Magnesium 2.8 mg/dL (1.6-2.3); Potassium 3.3 mmol/L (3.4-5.0); Sodium 126 mmol/L (137-145); Total Protein 6.5 g/dL (6.3-8.2); Triglycerides 379 mg/dL (<150)
[2025-03-17 07:55] LABS: Band Neutrophils Percent 6 % (0-6); Lymphocytes Absolute Manual 0.36 K/mm3 (1.1-4.5); Lymphocytes Percent Manual 4.0 % (18-44); Monocytes Absolute Manual 0.46 K/mm3 (0.1-0.90); Monocytes Percent Manual 5 % (3-9); Neutrophils Absolute Manual 8.37 K/mm3 (1.3-6.7); Neutrophils Percent Manual 85 % (46-73); Schistocytes None Seen; Total Cells Counted 100
[2025-03-17 08:07] LABS: Lipase 2839 U/L (23-300)
[2025-03-17] MEDS: THIAMINE HCL 200 MG/2 ML VIAL 100 MG IV PUSH (10:27)
[2025-03-17] MEDS: cefTRIAXone 1 GM in SODIUM CHLORIDE 0.9% IV 50 ML 100 ML IVPB (13:16)
--- NOTE | 2025-03-17 16:38 | P.PNIM_ITS ---
Progress Note: A&P Assessment and Plan (1) Pancreatitis: Qualifiers: Acute pancreatitis complication: uninfected necrosis Chronicity: acute Pancreatitis type: unspecified pancreatitis type Qualified Code(s): K85.91 - Acute pancreatitis with uninfected necrosis, unspecified Code(s): K85.90 - Acute pancreatitis without necrosis or infection, unspecified Status: Acute Assessment and Plan: Patient with acute pancreatitis. No prior history. Lipase 2500 CT abd/pelvis: Loss of fatty lobulation of the pancreas which may represent acute pancreatitis. No discrete signs of inflammation within the lesser sac. Hepatosplenomegaly. Nonobstructing 8 mm right renal stone. RUQ US showing GB sludge and fatty liver. No medications that would predispose patient to pancreatitis noted. Denied heavy/regular alcohol use. He was made NPO and IV fluids started after 3L bolus AST 61, ALT 59, total bilirubin 1.9 TG 380 GI and General surgery consulted. No surgical intervention indicated at this time, but may need outpatient cholecystectomy. Repeat LFTs about the same. Follow Diet started. Add thiamine in case he drinks more alcohol then he is saying (2) Acute kidney injury: Code(s): N17.9 - Acute kidney failure, unspecified Status: Acute Assessment and Plan: Creatinine 4.05, BUN 98, GFR 17. Renal US showing findings suggestive of medical renal disease. No hydronephrosis. Suspect kidney injury secondary to hypovolemia/dehydration as evidenced by an elevated hemoglobin and electrolyte derangements. Consider an underlying etiology. Started on IV fluids. Cr better at 1.4. Continue to trend renal function, electrolytes and UOP. Hold valacyclovir until renal function normalizes. (3) Biliary sludge: Code(s): K83.8 - Other specified diseases of biliary tract Status: Acute Assessment and Plan: As above. General surgery consulted and recommended continuation of ceftriaxone and Flagyl. No immediate surgical intervention indicated at this time. Outpatient laparoscopic cholecystectomy being considered (4) Hypokalemia: Code(s): E87.6 - Hypokalemia Status: Resolved Assessment and Plan: K+ 2.6 upon admission and this was replaced Mag >2.0 Follow and replace as needed. (5) Hyponatremia: Code(s): E87.1 - Hypo-osmolality and hyponatremia Status: Acute Assessment and Plan: Na 120 upon admission. Related to dehydration. IV fluids as mentioned above. Sodium climbing slowly as expected. Follow (6) Kidney stone on right side: Code(s): N20.0 - Calculus of kidney Status: Acute Assessment and Plan: A 8 mm nonobstructing calculus within the interpolar region of the right kidney with no hydronephrosis or additional renal calculi are detected bilaterally n oted on CT. - UA showed no signs of infection or blood Plan Hyperglycemia - Glucose noted to be 151 upon admission felt secondary to poor p.o. intake and stress response. HgbA1c 5.1. Bandemia - band count was 21% on admission (WBC 10.1K). Green to be related to stress response since normalized the next day and WBC normal as well. Prednisone is listed on his home med list but he denies taking this. DVT Prophylaxis: SCDs Code Status: Full code Subjective Date/time seen: 03/17/25 16:38 Interval history: 34yo male with GERD here for abdominal pain. Assuming care. Chart reviewed. Patient feels much better. No nausea or vomiting. He had diarrhea once today. No chest pain or shortness of breath. No history of pancreatitis. He feels hungry. He drinks on average about 6 alcoholic drinks per week. Exam Narrative: AF 97.1 131/74 94 16 99% ra Gen - NARD Chest - CTA bilaterally, nml RR CV - RRR S1/S2 Abd - Soft, NT/ND, Positive BS Ext - No pedal edema Psych - Nml mood and affect Skin - Warm and dry Objective Data Vital Signs Vital Signs: Vital Signs - 24 hr 03/16/25 17:11 03/16/25 18:11 03/16/25 20:00 Temperature 98.7 F Pulse Rate 99 101 H Respiratory Rate 16 16 Blood Pressure 138/74 131/78 Pulse Oximetry 96 98 Oxygen Delivery Room Air 03/16/25 20:00 03/16/25 21:17 03/16/25 22:15 Temperature 97.7 F Pulse Rate 99 100 Respiratory Rate 19 Blood Pressure 132/58 L Pulse Oximetry 97 96 Oxygen Delivery Room Air 03/17/25 00:00 03/17/25 04:00 03/17/25 05:36 Temperature 97.6 F Pulse Rate 98 93 97 Respiratory Rate 14 Blood Pressure 121/67 Pulse Oximetry 97 Oxygen Delivery 03/17/25 08:00 03/17/25 08:00 03/17/25 12:00 Temperature Pulse Rate 93 94 Respiratory Rate Blood Pressure Pulse Oximetry Oxygen Delivery Room Air 03/17/25 14:00 Temperature 97.1 F L Pulse Rate 94 Respiratory Rate 16 Blood Pressure 131/74 Pulse Oximetry 99 Oxygen Delivery Intake/Output Intake/Output: Intake & Output 03/14/25 03/15/25 03/16/25 03/17/25 23:59 23:59 23:59 23:59 Intake Total 4272.5 2340 Balance 4272.5 2340 Meds/Results Medications: Active Medications Generic Name Dose Route Start Last Admin Trade Name Freq PRN Reason Stop Dose Admin Acetaminophen 650 mg 03/16/25 18:48 Acetaminophen 325 Mg Tablet PO Q6H PRN Mild Pain (1-3) or Fever Hydrocodone Bitart/Acetaminophen 1 tab 03/16/25 18:48 Hydrocodone/Acetaminophen (*Crx) 5-325 Mg Tablet PO Q6H PRN Pain Rated 4-6 Metronidazole 500 mg in 100 mls @ 100 mls/hr 03/16/25 22:00 03/17/25 15:25 Flagyl 500 Mg/Iso Soln 100 Ml IVPB 100 mls/hr Q8H VICTOR HUGO Administration Ceftriaxone Sodium 1 gm/ 50 mls @ 100 mls/hr 03/17/25 13:00 03/17/25 13:16 Sodium Chloride IVPB 100 mls/hr Q24H VICTOR HUGO Administration Sodium Chloride 1,000 mls @ 150 mls/hr 03/16/25 15:55 03/17/25 13:15 Normal Saline Iv IV CONT 150 mls/hr .Q6H40M VICTOR HUGO Administration Miscellaneous Information 0 each 03/16/25 00:01 Clarify Prn Or Scheduled? XX 04/15/25 00:00 CLARIFY VICTOR HUGO Morphine Sulfate 4 mg 03/16/25 15:52 Morphine Sulfate (*Crx) 4 Mg/Ml Inj IV PUSH Q2H PRN Pain Rated 7-10 Non-Formulary Medication 20 mg 03/16/25 19:00 Omeprazole PO 04/15/25 18:59 PRN VICTOR HUGO Ondansetron HCl 4 mg 03/16/25 15:52 Ondansetron Inj 4 Mg/2 Ml Vial IV PUSH Q4H PRN Nausea Thiamine HCl 100 mg 03/17/25 09:00 03/17/25 10:27 Thiamine Hcl 200 Mg/2 Ml Vial IV PUSH 100 mg QAM VICTOR HUGO Administration Valacyclovir HCl 1,000 mg 03/16/25 22:00 03/17/25 15:25 Valacyclovir Hcl 500 Mg Tablet PO 1,000 mg Q8HR VICTOR HUGO Administration Radiology Results: ITS Impressions Upper Quadrant Ultrasound 03/16/25 12:29 IMPRESSION: 1: Gallbladder sludge. 2: Fatty infiltration of the liver. Renal Ultrasound 03/16/25 12:31 IMPRESSION: No hydronephrosis or renal calculi. Findings suggesting medical renal disease. Both ureteral jets are visualized. Abdomen/Pelvis CT 03/16/25 15:23 IMPRESSION: Loss of fatty lobulation of the pancreas which may represent acute pancreatitis (in the appropriate clinical setting). No discrete signs of inflammation within the lesser sac. Hepatosplenomegaly. Nonobstructing 8 mm right renal stone. Labs Labs: Laboratory Results - last 24 hr 03/16/25 03/17/25 18:51 07:01 WBC 9.2 RBC 5.28 Hgb 16.0 D Hct 44.5 MCV 84.3 MCH 30.3 MCHC 36.0 RDW 12.3 Plt Count 217 MPV 10.1 Immature Gran % (Auto) Not Reportable Neut % (Auto) Not Reportable Lymph % (Auto) Not Reportable [place] % (Auto) Not Reportable Eos % (Auto) Not Reportable Baso % (Auto) Not Reportable Lymph # (Auto) Not Reportable [place] # (Auto) Not Reportable Eos # (Auto) Not Reportable Baso # (Auto) Not Reportable Abs Immat Gran (auto) Not Reportable Absolute Neuts (auto) Not Reportable Absolute Nucleated RBC Not Reportable Total Counted 100 Neutrophils % (Manual) 85 H Band Neutrophils % 6 Lymphocytes % (Manual) 4.0 L Monocytes % (Manual) 5 Nucleated RBC % Not Reportable Abs Neuts (Manual) 8.37 H Abs Lymphs (Manual) 0.36 L Abs Monocytes (Manual) 0.46 Platelet Estimate Adequate Schistocytes None seen Sodium 125 L 126 L Potassium 3.6 3.3 L Chloride 91 L 93 L Carbon Dioxide 24 25 Anion Gap 10 8 BUN 66 H D 43 H D Creatinine 2.04 H 1.40 H Estim Creat Clear Calc 53 77 Estimated GFR 38 L 58 L Glucose 122 H 116 H Hemoglobin A1c 5.1 Calcium 7.6 L 7.9 L Magnesium 2.8 H Total Bilirubin 1.9 H AST 60 H ALT 57 H Alkaline Phosphatase 60 Total Protein 6.5 Albumin 3.6 Triglycerides 379 H Cholesterol 144 LDL Cholesterol Direct 67 HDL Direct 20 Lipase 2839 H
--- NOTE | 2025-03-17 19:10 | PC.NURSE ---
On 03/17/25, the CLINICAL CYTOGENETICIST SCIENTIST, Nyla Garcia], provided care and completed [facility] documentation on this patient. I have reviewed the CLINICAL CYTOGENETICIST SCIENTIST's documentation and agree with the findings.
--- NOTE | 2025-03-17 19:30 | WPDGICN ---
Assessment and Plan Assessment and plan (1) Nausea and vomiting in adult: Code(s): R11.2 - Nausea with vomiting, unspecified Status: Acute Assessment and Plan: dehydration, pancreatitis, heat exposure, also diarrhea this is improved and much better GB sludge with normal bile duct size, also reviewed CT scan alcohol only social first episode pancreatitis, consider mrcp advance diet (2) Dehydration: Code(s): E86.0 - Dehydration Status: Acute Assessment and Plan: treated (3) Hyponatremia: Code(s): E87.1 - Hypo-osmolality and hyponatremia Status: Acute (4) Acute kidney injury: Code(s): N17.9 - Acute kidney failure, unspecified Status: Acute Assessment and Plan: improved (5) Biliary sludge: Code(s): K83.8 - Other specified diseases of biliary tract Status: Acute Assessment and Plan: evaluated by surgery (6) Pancreatitis: Qualifiers: Acute pancreatitis complication: uninfected necrosis Chronicity: acute Pancreatitis type: unspecified pancreatitis type Qualified Code(s): K85.91 - Acute pancreatitis with uninfected necrosis, unspecified Code(s): K85.90 - Acute pancreatitis without necrosis or infection, unspecified Status: Acute Assessment and Plan: TG level 300 (7) Elevated lipase: Code(s): R74.8 - Abnormal levels of other serum enzymes Status: Acute GI Consult Note Consult date/time: 03/17/25 19:30 Reason for consult: n/v, dehydration, pancreatitis HPI: Satnam Case is a 34 year old male here with new onset of abdominal pain, nausea, vomiting, and diarrhea. The patient reports onset approximately 5 days ago on 03/11, he was exposed to hear working outside and started with abdominal pain described as sharp, severe, nonradiating, also had nausea, vomiting, and diarrhea as well as some dizziness, headache, and lightheadedness. He denies regular heavy alcohol use, did have a few shots of Tequila a few weeks ago. ED workup showed: WBC 10.1, hemoglobin 20.6 (17 in 2023), sodium 120, potassium 2.6, creatinine 4.05 and GFR 14 (0.9 and normal GFR on 01/09/2024), glucose 151, lactic 1.8, total bilirubin 1.9, AST 61, ALT 59, lipase 2516. UA showed 1+ protein otherwise unremarkable. Right upper quadrant US showed gallbladder sludge and fatty infiltration of the liver. Renal ultrasound showed no hydronephrosis. Overall doing much better now, shannen and dehydration improving, no more nausea and has been tolerating liquid diet, willing to eat more, denies previous pancreatitis. Review of Systems Constitutional: Constitutional: Reports weakness Eyes: Eyes: Denies blurry vision ENT: Reports Normal hearing present Cardiovascular: Cardiovascular: Denies chest pain Respiratory: Respiratory: Denies cough Gastrointestinal: Gastrointestinal: Reports abdominal pain, Reports nausea and Reports vomiting Genitourinary: Genitourinary: Denies dysuria Musculoskeletal: Musculoskeletal: Denies neck pain Integumentary/Breasts: Skin/Breast: Denies rash Neurologic: Denies Abnormal speech present Psychiatric: Psychiatric: Denies behavioral changes [facility] Past Medical History Medical History (Updated 03/17/25 @ 19:33 by Sky Werner MD) Dehydration Nausea and vomiting in adult GERD (gastroesophageal reflux disease) Social History Social History Smoking status: Current some day smoker Smokeless tobacco user: chewing tobacco Additional smoking assessment comments: Smokes a couple times a month. Alcohol intake: current Drinks per week: 3 Substance use: never Lack of Transportation: No Lack of Food: Never True Current Housing: I Have Housing Concerned About Future Housing: No Difficulty Paying Gas/Electric Bills: No Difficulty Paying for Meds: No Currently Unemployed: No Education: High School Diploma/GED Difficulty w/ Childcare or Family Care: No Spiritual care concerns: No Meds Home Medications and Allergies Home Medications ?Medication ?Instructions ?Recorded ?Confirmed ?Type prednisone 20 mg tablet 60 mg (3 x 20 mg) PO DAILY 6 days 01/09/24 03/16/25 Rx #18 tabs valacyclovir 1 gram tablet 1,000 mg PO Q8H 1 week #21 tabs 01/09/24 03/16/25 Rx omeprazole 10 mg capsule,delayed 20 mg PO PRN 03/16/25 03/16/25 History release Allergies Allergy/AdvReac Type Severity Reaction Status Date / Time No Known Allergies Allergy Verified 03/16/25 10:32 Vital Signs Vital Signs - 24 hr 03/16/25 20:00 03/16/25 20:00 03/16/25 21:17 Temperature 97.7 F Pulse Rate 99 100 Respiratory Rate 19 Blood Pressure 132/58 L Pulse Oximetry 97 Oxygen Delivery Room Air 03/16/25 22:15 03/17/25 00:00 03/17/25 04:00 Temperature Pulse Rate 98 93 Respiratory Rate Blood Pressure Pulse Oximetry 96 Oxygen Delivery Room Air 03/17/25 05:36 03/17/25 08:00 03/17/25 08:00 Temperature 97.6 F Pulse Rate 97 93 Respiratory Rate 14 Blood Pressure 121/67 Pulse Oximetry 97 Oxygen Delivery Room Air 03/17/25 12:00 03/17/25 14:00 03/17/25 16:00 Temperature 97.1 F L Pulse Rate 94 94 113 H Respiratory Rate 16 Blood Pressure 131/74 Pulse Oximetry 99 Oxygen Delivery Exam Const: General: comfortable and no acute distress Eyes: General: appearance normal, both eyes and all related structures Neck: Neck: supple Resp: Effort & Inspection: normal respiratory effort Cardio: Rate: regular rate GI: Inspection: non-distended GI Palp: Yes Soft to palpation, No Tenderness to palpation present (GI), No Guarding due to palpation present (GI) and No Hernia present Auscultation: normal bowel sounds : General: Yes bladder normal to palpation Skin: General skin exam: normal color and no rashes or lesions noted Neuro: Speech: normal speech Sensory Exam: normal sensation Extrem: General: normal to inspection Psych: Mental Status: mental status grossly normal Results Labs 03/17/25 07:01 03/17/25 07:01 Labs: Short CBC 03/17/25 Range/Units 07:01 WBC 9.2 (4.5-10.0) K/mm3 Hgb 16.0 D (14.0-18.0) g/dL Hct 44.5 (42.0-52.0) % Plt Count 217 (150-375) k/mm3 [facility] 03/17/25 07:01 Sodium 126 L Potassium 3.3 L Chloride 93 L Carbon Dioxide 25 BUN 43 H D Creatinine 1.40 H Glucose 116 H Calcium 7.9 L Liver Function 03/17/25 Range/Units 07:01 Total Bilirubin 1.9 H (0.2-1.3) mg/dL AST 60 H (17-59) U/L ALT 57 H (6-50) U/L Alkaline Phosphatase 60 (38-126) U/L Albumin 3.6 (3.5-5.1) g/dL
[2025-03-17] MEDS: PANTOPRAZOLE 40 MG TABLET PO (21:43)
[2025-03-18] VITALS (9 sets, daily range): BP systolic 121–142; BP diastolic 63–85; PULSE 81–107; RESP 16–18; TEMP 36.2–36.9; O2SAT 95–99
[2025-03-18] MEDS: SODIUM CHLORIDE 0.9% IV 1,000 ML 70 ML IV CONT (02:52)
[2025-03-18] MEDS: metroNIDAZOLE 500 MG/ISO 100ML 500 MG/100 ML BAG 100 MG IVPB (05:19)
[2025-03-18 06:16] LABS: Hematocrit 41.2 % (42.0-52.0); Hemoglobin 14.7 g/dL (14.0-18.0); Mean Corpuscular HGB Conc 35.7 g/dl (32-36); Mean Corpuscular Hemoglobin 30.4 pg (26-34); Mean Corpuscular Volume 85.3 fl (80-100); Platelet Count Result 213 k/mm3 (150-375); Red Blood Count 4.83 M/mm3 (4.6-6.20); White Blood Count 9.9 K/mm3 (4.5-10.0)
[2025-03-18 06:44] LABS: Alanine Aminotransferase 67 U/L (6-50); Albumin Level 3.3 g/dL (3.5-5.1); Alkaline Phosphatase 62 U/L (38-126); Anion Gap 6 mmol/L (4-12); Aspartate Amino Transferase 77 U/L (17-59); Band Neutrophils Percent 19 % (0-6); Bilirubin,Total 1.3 mg/dL (0.2-1.3); Blood Urea Nitrogen 25 mg/dL (9-20); Calcium 8.0 mg/dL (8.4-10.2); Carbon Dioxide 28 mmol/L (22-30); Chloride 93 mmol/L (98-107); Eosinophils Absolute Manual 0.09 K/mm3 (0.02-0.50); Eosinophils Percent Manual 1 % (0-4); Estimated CRCL calculation 100 ml/min; Estimated Glomerular Filt Rate > 60; Glucose 98 mg/dL (65-110); Lymphocytes Absolute Manual 0.59 K/mm3 (1.1-4.5); Lymphocytes Percent Manual 6 % (18-44); Monocytes Absolute Manual 0.29 K/mm3 (0.1-0.90); Monocytes Percent Manual 3 % (3-9); Neutrophils Absolute Manual 8.91 K/mm3 (1.3-6.7); Neutrophils Percent Manual 71 % (46-73); Potassium 3.2 mmol/L (3.4-5.0); Sodium 127 mmol/L (137-145); Total Cells Counted 100; Total Protein 6.0 g/dL (6.3-8.2)
[2025-03-18 06:45] LABS: Schistocytes None Seen; Toxic Granulation Present
[2025-03-18 06:59] LABS: Lipase 3362 U/L (23-300)
[2025-03-18] MEDS: THIAMINE HCL 200 MG/2 ML VIAL 100 MG IV PUSH (09:45)
[2025-03-18] MEDS: cefTRIAXone 2 GM in SODIUM CHLORIDE 0.9% IV 100 ML 200 ML IVPB (09:46)
--- NOTE | 2025-03-18 10:19 | P.PNGS_ITS ---
Progress Note: A&P Assessment and Plan (1) Abnormal ultrasound of gallbladder: Code(s): R93.2 - Abnormal findings on diagnostic imaging of liver and biliary tract Status: Acute Assessment and Plan: Patient does not have any abdominal pain today. Having regular bowel movements. No nausea or vomiting with regular diet. Kidney function improving. AST and ALT remains slightly elevated. Bilirubin decreased to 1.3. Lipase increased at 3362. GI consult to do yesterday and recommended MRCP. MRCP was scheduled for today, the patient ate a full breakfast. Patient was made NPO at midnight, with MRCP rescheduled for tomorrow. We will follow up with results and coordinate plans with GI. Continue ceftriaxone and Flagyl. No immediate surgical intervention necessary at this time. (2) Acute kidney injury: Code(s): N17.9 - Acute kidney failure, unspecified Status: Acute Assessment and Plan: Kidney function improving. Continue to manage per hospitalist recs. (3) Elevated lipase: Code(s): R74.8 - Abnormal levels of other serum enzymes Status: Acute Assessment and Plan: Lipase now 3362. Continue with IV rehydration and pain management. Will follow with MRCP results. (4) Hypokalemia: Code(s): E87.6 - Hypokalemia Status: Resolved Assessment and Plan: Potassium 3.2 today. Oral potassium ordered by hospitalist. Will continue to monitor with daily labs. Plan Discussed patient's case and plan of care with Dr. Beltran. Subjective Subjective Date/Time Seen: 03/18/25 10:19 Interval history: Patient is primarily Iranian-speaking, and laboratory helper Sudarshan [id number] was used for majority of the interview. Patient feels well today. No nausea or vomiting. No mention of abdominal pain. Having regular bowel movements. Tolerating regular diet. Exam GI: GI Palp: Yes Soft to palpation, No Tenderness to palpation present (GI) and No Guarding due to palpation present (GI) Auscultation: normal bowel sounds Objective Data Vital Signs Vital Signs: Vital Signs - 24 hr 03/17/25 12:00 03/17/25 14:00 03/17/25 16:00 Temperature 97.1 F L Pulse Rate 94 94 113 H Respiratory Rate 16 Blood Pressure 131/74 Pulse Oximetry 99 Oxygen Delivery Fraction of Inspired Oxygen 03/17/25 20:00 03/17/25 20:00 03/17/25 20:34 Temperature 97.5 F L Pulse Rate 113 H 89 90 Respiratory Rate 16 16 Blood Pressure 118/60 Pulse Oximetry 99 97 Oxygen Delivery Room Air Fraction of Inspired Oxygen 03/17/25 22:09 03/18/25 00:00 03/18/25 04:00 Temperature Pulse Rate 81 87 Respiratory Rate Blood Pressure Pulse Oximetry 94 Oxygen Delivery Room Air Fraction of Inspired Oxygen 21 03/18/25 05:43 03/18/25 08:00 Temperature 98.4 F Pulse Rate 87 107 H Respiratory Rate 16 Blood Pressure 128/63 Pulse Oximetry 98 Oxygen Delivery Fraction of Inspired Oxygen Intake/Output Intake/Output: Intake & Output 03/15/25 03/16/25 03/17/25 03/18/25 23:59 23:59 23:59 23:59 Intake Total 4272.5 4930.0 686 Balance 4272.5 4930.0 686 Meds/Results Medications: Active Medications Generic Name Dose Route Start Last Admin Trade Name Freq PRN Reason Stop Dose Admin Acetaminophen 650 mg 03/16/25 18:48 Acetaminophen 325 Mg Tablet PO Q6H PRN Mild Pain (1-3) or Fever Hydrocodone Bitart/Acetaminophen 1 tab 03/16/25 18:48 Hydrocodone/Acetaminophen (*Crx) 5-325 Mg Tablet PO Q6H PRN Pain Rated 4-6 Metronidazole 500 mg in 100 mls @ 100 mls/hr 03/16/25 22:00 03/18/25 05:19 Flagyl 500 Mg/Iso Soln 100 Ml IVPB 100 mls/hr Q8H VICTOR HUGO Administration Sodium Chloride 1,000 mls @ 70 mls/hr 03/16/25 15:55 03/18/25 02:52 Normal Saline Iv IV CONT 70 mls/hr .[id number] VICTOR HUGO Administration Ceftriaxone Sodium 2 gm/ 100 mls @ 200 mls/hr 03/18/25 09:00 03/18/25 09:46 Sodium Chloride IVPB 200 mls/hr Q24H VICTOR HUGO Administration Morphine Sulfate 4 mg 03/16/25 15:52 Morphine Sulfate (*Crx) 4 Mg/Ml Inj IV PUSH Q2H PRN Pain Rated 7-10 Ondansetron HCl 4 mg 03/16/25 15:52 Ondansetron Inj 4 Mg/2 Ml Vial IV PUSH Q4H PRN Nausea Pantoprazole Sodium 40 mg 03/17/25 21:00 03/17/25 21:43 Pantoprazole 40 Mg Tablet PO 40 mg Q12HR VICTOR HUGO Administration Thiamine HCl 100 mg 03/17/25 09:00 03/18/25 09:45 Thiamine Hcl 200 Mg/2 Ml Vial IV PUSH 100 mg QAM VICTOR HUGO Administration Valacyclovir HCl 1,000 mg 03/16/25 22:00 03/17/25 15:25 Valacyclovir Hcl 500 Mg Tablet PO 1,000 mg Q8HR VICTOR HUGO Administration Radiology Results: ITS Impressions Upper Quadrant Ultrasound 03/16/25 12:29 IMPRESSION: 1: Gallbladder sludge. 2: Fatty infiltration of the liver. Renal Ultrasound 03/16/25 12:31 IMPRESSION: No hydronephrosis or renal calculi. Findings suggesting medical renal disease. Both ureteral jets are visualized. Abdomen/Pelvis CT 03/16/25 15:23 IMPRESSION: Loss of fatty lobulation of the pancreas which may represent acute pancreatitis (in the appropriate clinical setting). No discrete signs of inflammation within the lesser sac. Hepatosplenomegaly. Nonobstructing 8 mm right renal stone. Labs Labs: Laboratory Results - last 24 hr 03/18/25 06:03 WBC 9.9 RBC 4.83 Hgb 14.7 Hct 41.2 L MCV 85.3 MCH 30.4 MCHC 35.7 RDW 12.1 Plt Count 213 MPV 9.8 Immature Gran % (Auto) Not Reportable Neut % (Auto) Not Reportable Lymph % (Auto) Not Reportable [place] % (Auto) Not Reportable Eos % (Auto) Not Reportable Baso % (Auto) Not Reportable Lymph # (Auto) Not Reportable [place] # (Auto) Not Reportable Eos # (Auto) Not Reportable Baso # (Auto) Not Reportable Abs Immat Gran (auto) Not Reportable Absolute Neuts (auto) Not Reportable Absolute Nucleated RBC Not Reportable Total Counted 100 Neutrophils % (Manual) 71 Band Neutrophils % 19 H Lymphocytes % (Manual) 6 L Monocytes % (Manual) 3 Eosinophils % (Manual) 1 Nucleated RBC % Not Reportable Abs Neuts (Manual) 8.91 H Abs Lymphs (Manual) 0.59 L Abs Monocytes (Manual) 0.29 Absolute Eos (Manual) 0.09 Toxic Granulation Present Platelet Estimate Adequate Schistocytes None seen Sodium 127 L Potassium 3.2 L Chloride 93 L Carbon Dioxide 28 Anion Gap 6 BUN 25 H D Creatinine 1.06 Estim Creat Clear Calc 100 Estimated GFR > 60 Glucose 98 Calcium 8.0 L Total Bilirubin 1.3 AST 77 H ALT 67 H Alkaline Phosphatase 62 Total Protein 6.0 L Albumin 3.3 L Lipase 3362 H
--- NOTE | 2025-03-18 12:48 | PM.IMPN ---
Progress Note: A&P Assessment and Plan (1) Pancreatitis: Qualifiers: Acute pancreatitis complication: uninfected necrosis Chronicity: acute Pancreatitis type: unspecified pancreatitis type Qualified Code(s): K85.91 - Acute pancreatitis with uninfected necrosis, unspecified Code(s): K85.90 - Acute pancreatitis without necrosis or infection, unspecified Status: Acute Assessment and Plan: Patient with acute pancreatitis. No prior history. Lipase 2500 CT abd/pelvis: Loss of fatty lobulation of the pancreas which may represent acute pancreatitis. No discrete signs of inflammation within the lesser sac. Hepatosplenomegaly. Nonobstructing 8 mm right renal stone. RUQ US showing GB sludge and fatty liver. No medications that would predispose patient to pancreatitis noted. Denied heavy/regular alcohol use. He was made NPO and IV fluids started after 3L bolus AST 61, ALT 59, total bilirubin 1.9 TG 380 GI and General surgery consulted. No surgical intervention indicated at this time, but may need outpatient cholecystectomy. Repeat LFTs better with normal TBili and AP. AST/ALT slightly higher. BCx positive GNB one anaerobic bottle only Lipase continues to climb 2500 -> 3360. MRCP ordered and pending. Diet advanced Source most likely from GB. Also having diarhea so consider Salmonella/Shigella. Check stool studies. No lung symptoms but check CXR to evaluate for occult PNA. UA negative making UTI unlikely. Continue abx with Rocephin and Flagyl since patient is clincally asymptomatic. (2) Bacteremia: Code(s): R78.81 - Bacteremia Status: Acute Assessment and Plan: As above (3) Acute kidney injury: Code(s): N17.9 - Acute kidney failure, unspecified Status: Acute Assessment and Plan: Creatinine 4.05, BUN 98, GFR 17. Renal US showing findings suggestive of medical renal disease. No hydronephrosis. Suspect kidney injury secondary to hypovolemia/dehydration as evidenced by an elevated hemoglobin and electrolyte derangements. Consider an underlying etiology. Started on IV fluids. Cr better at 1.0 Continue to trend renal function, electrolytes and UOP. Stop IV fluids (4) Biliary sludge: Code(s): K83.8 - Other specified diseases of biliary tract Status: Acute Assessment and Plan: As above. General surgery consulted and recommended continuation of ceftriaxone and Flagyl. No immediate surgical intervention indicated at this time. Outpatient laparoscopic cholecystectomy being considered (5) Hypokalemia: Code(s): E87.6 - Hypokalemia Status: Resolved Assessment and Plan: K+ 2.6 upon admission and this was replaced Mag >2.0 Follow and replace as needed. (6) Hyponatremia: Code(s): E87.1 - Hypo-osmolality and hyponatremia Status: Acute Assessment and Plan: Na 120 upon admission. Related to dehydration. IV fluids as mentioned above. Sodium climbing slowly as expected. Follow (7) Kidney stone on right side: Code(s): N20.0 - Calculus of kidney Status: Acute Assessment and Plan: A 8 mm nonobstructing calculus within the interpolar region of the right kidney with no hydronephrosis or additional renal calculi are detected bilaterally noted on CT. UA showed no signs of infection or blood Follow clinically Plan Hyperglycemia - Glucose noted to be 151 upon admission felt secondary to poor p.o. intake and stress response. HgbA1c 5.1. Bandemia - band count was 21% on admission (WBC 10.1K). [place] to be related to bacteremia. Bandemia normalized and WBC remains normal but bandemia recurrent today at 19%! Patient is asymptomatic so will continue current abx. Prednisone and valacyclovir was listed on his home med list but this was incorrect. DVT Prophylaxis: SCDs Code Status: Full code Subjective Date/time seen: 03/18/25 12:48 Interval history: 34yo male with GERD here for abdominal pain. No abdominal pain. No dysuria or hematuria. No cough or SOB. BNo CP. No n/v. Still having loose stools with 3 yesterday and 3 so far today. Had breakfast this morning so MRCP was held with plans to get this later today. BCx returned positive over night Exam Narrative: AF 98.4 128/63 107 16 98% ra Gen - NARD Chest - CTA bilaterally, nml RR CV - RRR S1/S2 Abd - Soft, NT/ND, Positive BS Ext - No pedal edema Psych - Nml mood and affect Skin - Warm and dry Objective Data Vital Signs Vital Signs: Vital Signs - 24 hr 03/17/25 14:00 03/17/25 16:00 03/17/25 20:00 Temperature 97.1 F L Pulse Rate 94 113 H 113 H Respiratory Rate 16 16 Blood Pressure 131/74 Pulse Oximetry 99 99 Oxygen Delivery Room Air Fraction of Inspired Oxygen 03/17/25 20:00 03/17/25 20:34 03/17/25 22:09 Temperature 97.5 F L Pulse Rate 89 90 Respiratory Rate 16 Blood Pressure 118/60 Pulse Oximetry 97 94 Oxygen Delivery Room Air Fraction of Inspired Oxygen 21 03/18/25 00:00 03/18/25 04:00 03/18/25 05:43 Temperature 98.4 F Pulse Rate 81 87 87 Respiratory Rate 16 Blood Pressure 128/63 Pulse Oximetry 98 Oxygen Delivery Fraction of Inspired Oxygen 03/18/25 08:00 03/18/25 08:00 Temperature Pulse Rate 107 H Respiratory Rate Blood Pressure Pulse Oximetry 98 Oxygen Delivery Room Air Fraction of Inspired Oxygen Intake/Output Intake/Output: Intake & Output 03/15/25 03/16/25 03/17/25 03/18/25 23:59 23:59 23:59 23:59 Intake Total 4272.5 4930.0 686 Balance 4272.5 4930.0 686 Meds/Results Medications: Active Medications Generic Name Dose Route Start Last Admin Trade Name Freq PRN Reason Stop Dose Admin Acetaminophen 650 mg 03/16/25 18:48 Acetaminophen 325 Mg Tablet PO Q6H PRN Mild Pain (1-3) or Fever Hydrocodone Bitart/Acetaminophen 1 tab 03/16/25 18:48 Hydrocodone/Acetaminophen (*Crx) 5-325 Mg Tablet PO Q6H PRN Pain Rated 4-6 Sodium Chloride 1,000 mls @ 70 mls/hr 03/16/25 15:55 03/18/25 02:52 Normal Saline Iv IV CONT 70 mls/hr .[id number] VICTOR HUGO Administration Ceftriaxone Sodium 2 gm/ 100 mls @ 200 mls/hr 03/18/25 09:00 03/18/25 09:46 Sodium Chloride IVPB 200 mls/hr Q24H VICTOR HUGO Administration Metronidazole 500 mg 03/18/25 14:00 Metronidazole 500 Mg Tablet PO Q8HR VICTOR HUGO Morphine Sulfate 4 mg 03/16/25 15:52 Morphine Sulfate (*Crx) 4 Mg/Ml Inj IV PUSH Q2H PRN Pain Rated 7-10 Ondansetron HCl 4 mg 03/16/25 15:52 Ondansetron Inj 4 Mg/2 Ml Vial IV PUSH Q4H PRN Nausea Pantoprazole Sodium 40 mg 03/17/25 21:00 03/18/25 12:45 Pantoprazole 40 Mg Tablet PO Not Given Q12HR VICTOR HUGO Thiamine HCl 100 mg 03/17/25 09:00 03/18/25 09:45 Thiamine Hcl 200 Mg/2 Ml Vial IV PUSH 100 mg QAM VICTOR HUGO Administration Radiology Results: ITS Impressions Upper Quadrant Ultrasound 03/16/25 12:29 IMPRESSION: 1: Gallbladder sludge. 2: Fatty infiltration of the liver. Renal Ultrasound 03/16/25 12:31 IMPRESSION: No hydronephrosis or renal calculi. Findings suggesting medical renal disease. Both ureteral jets are visualized. Abdomen/Pelvis CT 03/16/25 15:23 IMPRESSION: Loss of fatty lobulation of the pancreas which may represent acute pancreatitis (in the appropriate clinical setting). No discrete signs of inflammation within the lesser sac. Hepatosplenomegaly. Nonobstructing 8 mm right renal stone. Labs Labs: Laboratory Results - last 24 hr 03/18/25 06:03 WBC 9.9 RBC 4.83 Hgb 14.7 Hct 41.2 L MCV 85.3 MCH 30.4 MCHC 35.7 RDW 12.1 Plt Count 213 MPV 9.8 Immature Gran % (Auto) Not Reportable Neut % (Auto) Not Reportable Lymph % (Auto) Not Reportable [place] % (Auto) Not Reportable Eos % (Auto) Not Reportable Baso % (Auto) Not Reportable Lymph # (Auto) Not Reportable [place] # (Auto) Not Reportable Eos # (Auto) Not Reportable Baso # (Auto) Not Reportable Abs Immat Gran (auto) Not Reportable Absolute Neuts (auto) Not Reportable Absolute Nucleated RBC Not Reportable Total Counted 100 Neutrophils % (Manual) 71 Band Neutrophils % 19 H Lymphocytes % (Manual) 6 L Monocytes % (Manual) 3 Eosinophils % (Manual) 1 Nucleated RBC % Not Reportable Abs Neuts (Manual) 8.91 H Abs Lymphs (Manual) 0.59 L Abs Monocytes (Manual) 0.29 Absolute Eos (Manual) 0.09 Toxic Granulation Present Platelet Estimate Adequate Schistocytes None seen Sodium 127 L Potassium 3.2 L Chloride 93 L Carbon Dioxide 28 Anion Gap 6 BUN 25 H D Creatinine 1.06 Estim Creat Clear Calc 100 Estimated GFR > 60 Glucose 98 Calcium 8.0 L Total Bilirubin 1.3 AST 77 H ALT 67 H Alkaline Phosphatase 62 Total Protein 6.0 L Albumin 3.3 L Lipase 3362 H
[2025-03-18] MEDS: POTASSIUM CHLORIDE 20 MEQ ER TABLET 40 MEQ PO (15:17)
--- NOTE | 2025-03-18 19:24 | PC.NURSE ---
On 03/18/25, the JEWELRY POLISHER, Nyla Nunez, provided care and completed [facility] documentation on this patient. I have reviewed the JEWELRY POLISHER's documentation and agree with the findings.
[2025-03-18] MEDS: PANTOPRAZOLE 40 MG TABLET PO (21:03)
[2025-03-18 22:48] LABS: Toxigenic C. Diff NEGATIVE (NEGATIVE)
[2025-03-19 05:51] VITALS: BP 105/61; PULSE 81; RESP 16; TEMP 36.4; O2SAT 100
[2025-03-19 06:26] LABS: Hematocrit 43.1 % (42.0-52.0); Hemoglobin 15.4 g/dL (14.0-18.0); Mean Corpuscular HGB Conc 35.7 g/dl (32-36); Mean Corpuscular Hemoglobin 30.8 pg (26-34); Mean Corpuscular Volume 86.2 fl (80-100); Platelet Count Result 267 k/mm3 (150-375); Red Blood Count 5.00 M/mm3 (4.6-6.20); White Blood Count 13.6 K/mm3 (4.5-10.0)
[2025-03-19 06:55] LABS: Alanine Aminotransferase 112 U/L (6-50); Albumin Level 3.4 g/dL (3.5-5.1); Alkaline Phosphatase 75 U/L (38-126); Anion Gap 7 mmol/L (4-12); Aspartate Amino Transferase 110 U/L (17-59); Bilirubin,Total 0.9 mg/dL (0.2-1.3); Blood Urea Nitrogen 25 mg/dL (9-20); Calcium 8.5 mg/dL (8.4-10.2); Carbon Dioxide 27 mmol/L (22-30); Chloride 98 mmol/L (98-107); Estimated CRCL calculation 98 ml/min; Estimated Glomerular Filt Rate > 60; Glucose 97 mg/dL (65-110); Magnesium 2.2 mg/dL (1.6-2.3); Potassium 3.1 mmol/L (3.4-5.0); Sodium 132 mmol/L (137-145); Total Protein 6.3 g/dL (6.3-8.2)
[2025-03-19 06:58] LABS: Anisocytosis 1+; Band Neutrophils Percent 16 % (0-6); Eosinophils Absolute Manual 0.13 K/mm3 (0.02-0.50); Eosinophils Percent Manual 1 % (0-4); Lymphocytes Absolute Manual 0.95 K/mm3 (1.1-4.5); Lymphocytes Percent Manual 7 % (18-44); Metamyelocytes Percent 3 %; Monocytes Absolute Manual 0.81 K/mm3 (0.1-0.90); Monocytes Percent Manual 6 % (3-9); Neutrophils Absolute Manual 11.28 K/mm3 (1.3-6.7); Neutrophils Percent Manual 67 % (46-73); Tear Drop Cells 1+; Total Cells Counted 100; Toxic Granulation Present
[2025-03-19 06:59] LABS: Schistocytes None Seen
[2025-03-19] MEDS: PANTOPRAZOLE 40 MG TABLET PO ×2 (08:35→20:40)
[2025-03-19] MEDS: POTASSIUM CHLORIDE 20 MEQ ER TABLET 40 MEQ PO (08:36)
[2025-03-19] MEDS: cefTRIAXone 2 GM in SODIUM CHLORIDE 0.9% IV 100 ML 200 ML IVPB (08:36)
[2025-03-19] MEDS: THIAMINE HCL 100 MG TABLET PO (08:36)
[2025-03-19 08:45] LABS: Lipase 3298 U/L (23-300)
--- NOTE | 2025-03-19 11:11 | PM.IMPN ---
Progress Note: A&P Assessment and Plan (1) Pancreatitis: Qualifiers: Acute pancreatitis complication: uninfected necrosis Chronicity: acute Pancreatitis type: unspecified pancreatitis type Qualified Code(s): K85.91 - Acute pancreatitis with uninfected necrosis, unspecified Code(s): K85.90 - Acute pancreatitis without necrosis or infection, unspecified Status: Acute Assessment and Plan: Patient with acute pancreatitis. No prior history. Lipase 2500 CT abd/pelvis: Loss of fatty lobulation of the pancreas which may represent acute pancreatitis. No discrete signs of inflammation within the lesser sac. Hepatosplenomegaly. Nonobstructing 8 mm right renal stone. RUQ US showing GB sludge and fatty liver. No medications that would predispose patient to pancreatitis noted. Denied heavy/regular alcohol use. He was made NPO and IV fluids started after 3L bolus AST 61, ALT 59, total bilirubin 1.9 TG 380 GI and General surgery consulted. No surgical intervention indicated at this time, but may need outpatient cholecystectomy. Repeat LFTs better with normal TBili and AP. AST/ALT slightly higher. BCx positive GNB one anaerobic bottle only -> Salmonella Lipase down slightly to 3300. MRCP showing normal liver, GB and pancreas. No GS and no intrahepatic and extrahepatic biliary or pancreatitic ductal dilation. Diet advanced Diarrhea from Salmonella. Stool studies pending. Continue abx with Rocephin and Flagyl. Follow up on sensitivities (2) Bacteremia: Code(s): R78.81 - Bacteremia Status: Acute Assessment and Plan: As above (3) Abdominal mass: Code(s): R19.00 - Intra-abdominal and pelvic swelling, mass and lump, unspecified site Status: Acute Assessment and Plan: MRCP also showing numerous nonspecific small enhancing subcutaneous nodules throughout the abdominal wall which has a wide differential including infectious inflammatory etiologies or neoplasm either benign such as neurofibromas or malignant such as lymphoma or metastatic disease. Suspect there are benign since no evidence of splenomegaly or lymphadenopathy. Will have him follow up with oncology for possible PET scan. (4) Acute kidney injury: Code(s): N17.9 - Acute kidney failure, unspecified Status: Acute Assessment and Plan: Creatinine 4.05, BUN 98, GFR 17. Renal US showing findings suggestive of medical renal disease. No hydronephrosis. Suspect kidney injury secondary to hypovolemia/dehydration as evidenced by an elevated hemoglobin and electrolyte derangements. Consider an underlying etiology. Started on IV fluids. Cr better at 1.08 Continue to trend renal function, electrolytes and UOP. (5) Biliary sludge: Code(s): K83.8 - Other specified diseases of biliary tract Status: Acute Assessment and Plan: As above. General surgery consulted and recommended continuation of ceftriaxone and Flagyl. No immediate surgical intervention indicated at this time. (6) Hypokalemia: Code(s): E87.6 - Hypokalemia Status: Resolved Assessment and Plan: K+ 2.6 upon admission and this was replaced Mag >2.0 Follow and replace as needed. (7) Hyponatremia: Code(s): E87.1 - Hypo-osmolality and hyponatremia Status: Acute Assessment and Plan: Na 120 upon admission. Related to dehydration. IV fluids as mentioned above. Sodium climbing slowly as expected. Follow (8) Kidney stone on right side: Code(s): N20.0 - Calculus of kidney Status: Acute Assessment and Plan: A 8 mm nonobstructing calculus within the interpolar region of the right kidney with no hydronephrosis or additional renal calculi are detected bilaterally noted on CT. UA showed no signs of infection or blood Follow clinically Plan Hyperglycemia - Glucose noted to be 151 upon admission felt secondary to poor p.o. intake and stress response. HgbA1c 5.1. Bandemia - band count was 21% on admission (WBC 10.1K). [place] to be related to bacteremia. Bandemia normalized and WBC remains normal but bandemia recurrent to 19% felt related to bacteremia. Prednisone and valacyclovir was listed on his home med list but this was incorrect. DVT Prophylaxis: SCDs Code Status: Full code Subjective Date/time seen: 03/19/25 11:11 Interval history: 34yo male with GERD here for abdominal pain. No complaints. Feels well. Still with diarrhea having 4-5 BMs yesterday but none since midnight. No abd pain Exam Narrative: AF 97.5 105/61 81 16 100% ra Gen - NARD Chest - CTA bilaterally, nml RR CV - RRR S1/S2 Abd - Soft, NT/ND, Positive BS Ext - No pedal edema Psych - Nml mood and affect Skin - Warm and dry Objective Data Vital Signs Vital Signs: Vital Signs - 24 hr 03/18/25 12:00 03/18/25 14:00 03/18/25 21:01 Temperature 97.1 F L Pulse Rate 95 93 91 Respiratory Rate 18 17 Blood Pressure 121/85 Pulse Oximetry 99 95 Oxygen Delivery Room Air Fraction of Inspired Oxygen 21 03/18/25 21:34 03/18/25 22:00 03/19/25 05:51 Temperature 97.8 F 97.5 F L Pulse Rate 91 81 Respiratory Rate 17 16 Blood Pressure 142/78 H 105/61 Pulse Oximetry 98 95 100 Oxygen Delivery Room Air Fraction of Inspired Oxygen Intake/Output Intake/Output: Intake & Output 03/16/25 03/17/25 03/18/25 03/19/25 23:59 23:59 23:59 23:59 Intake Total 4272.5 4930.0 1526 300 Balance 4272.5 4930.0 1526 300 Meds/Results Medications: Active Medications Generic Name Dose Route Start Last Admin Trade Name Freq PRN Reason Stop Dose Admin Acetaminophen 650 mg 03/16/25 18:48 Acetaminophen 325 Mg Tablet PO Q6H PRN Mild Pain (1-3) or Fever Hydrocodone Bitart/Acetaminophen 1 tab 03/16/25 18:48 Hydrocodone/Acetaminophen (*Crx) 5-325 Mg Tablet PO Q6H PRN Pain Rated 4-6 Ceftriaxone Sodium 2 gm/ 100 mls @ 200 mls/hr 03/18/25 09:00 03/19/25 08:36 Sodium Chloride IVPB 200 mls/hr Q24H VICTOR HUGO Administration Metronidazole 500 mg 03/18/25 14:00 03/19/25 05:57 Metronidazole 500 Mg Tablet PO Not Given Q8HR VICTOR HUGO Morphine Sulfate 4 mg 03/16/25 15:52 Morphine Sulfate (*Crx) 4 Mg/Ml Inj IV PUSH Q2H PRN Pain Rated 7-10 Ondansetron HCl 4 mg 03/16/25 15:52 Ondansetron Inj 4 Mg/2 Ml Vial IV PUSH Q4H PRN Nausea Pantoprazole Sodium 40 mg 03/17/25 21:00 03/19/25 08:35 Pantoprazole 40 Mg Tablet PO 40 mg Q12HR VICTOR HUGO Administration Thiamine HCl 100 mg 03/19/25 09:00 03/19/25 08:36 Thiamine Hcl 100 Mg Tablet PO 100 mg QAM VICTOR HUGO Administration Radiology Results: ITS Impressions Upper Quadrant Ultrasound 03/16/25 12:29 IMPRESSION: 1: Gallbladder sludge. 2: Fatty infiltration of the liver. Renal Ultrasound 03/16/25 12:31 IMPRESSION: No hydronephrosis or renal calculi. Findings suggesting medical renal disease. Both ureteral jets are visualized. Abdomen/Pelvis CT 03/16/25 15:23 IMPRESSION: Loss of fatty lobulation of the pancreas which may represent acute pancreatitis (in the appropriate clinical setting). No discrete signs of inflammation within the lesser sac. Hepatosplenomegaly. Nonobstructing 8 mm right renal stone. Chest X-Ray 03/18/25 18:10 IMPRESSION: 1. Small lung volumes with minimal bibasilar atelectasis. Labs Labs: Laboratory Results - last 24 hr 03/18/25 03/19/25 21:04 05:28 WBC 13.6 H RBC 5.00 Hgb 15.4 Hct 43.1 MCV 86.2 MCH 30.8 MCHC 35.7 RDW 12.2 Plt Count 267 MPV 10.0 Immature Gran % (Auto) Not Reportable Neut % (Auto) Not Reportable Lymph % (Auto) Not Reportable [place] % (Auto) Not Reportable Eos % (Auto) Not Reportable Baso % (Auto) Not Reportable Lymph # (Auto) Not Reportable [place] # (Auto) Not Reportable Eos # (Auto) Not Reportable Baso # (Auto) Not Reportable Abs Immat Gran (auto) Not Reportable Absolute Neuts (auto) Not Reportable Absolute Nucleated RBC Not Reportable Total Counted 100 Neutrophils % (Manual) 67 Band Neutrophils % 16 H Lymphocytes % (Manual) 7 L Monocytes % (Manual) 6 Eosinophils % (Manual) 1 Metamyelocytes % 3 Nucleated RBC % Not Reportable Abs Neuts (Manual) 11.28 H Abs Lymphs (Manual) 0.95 L Abs Monocytes (Manual) 0.81 Absolute Eos (Manual) 0.13 Toxic Granulation Present Platelet Estimate Adequate Anisocytosis 1+ Tear Drop Cells 1+ Schistocytes None seen Sodium 132 L Potassium 3.1 L Chloride 98 Carbon Dioxide 27 Anion Gap 7 BUN 25 H Creatinine 1.08 Estim Creat Clear Calc 98 Estimated GFR > 60 Glucose 97 Calcium 8.5 Magnesium 2.2 Total Bilirubin 0.9 AST 110 H ALT 112 H Alkaline Phosphatase 75 Total Protein 6.3 Albumin 3.4 L Lipase 3298 H C. difficile (PCR) Negative
[2025-03-19 11:57] LABS: Hepatitis B Surface Antigen Negative (Negative)
[2025-03-19 12:03] LABS: HAV RESULT Negative (Negative); Hepatitis B Core IgM Result Negative (Negative)
--- NOTE | 2025-03-19 14:01 | PM.PNGS ---
Progress Note: A&P Assessment and Plan (1) Abnormal ultrasound of gallbladder: Code(s): R93.2 - Abnormal findings on diagnostic imaging of liver and biliary tract Status: Acute Assessment and Plan: No complaints of abdominal pain. Having regular bowel movements. No nausea or vomiting with regular diet. Kidney function continues to improve. AST and ALT elevated. Bilirubin decreased to 0.9. Lipase remains significantly elevated at 3298. MRCP was obtained today and demonstrated a normal liver, gallbladder and pancreas with no gallstones and no intra or extrahepatic biliary or pancreatic ductal dilation. Small fat containing umbilical hernia. Numerous nonspecific small enhancing subcutaneous nodules throughout the abdominal wall. Surgically stable for discharge, as patient's pain was not likely due to his gallbladder. Pancreatitis of unknown etiology. If any issues arise with umbilical hernia or subcutaneous nodules, patient can call our office to schedule an appointment. We will sign off at this time. (2) Acute kidney injury: Code(s): N17.9 - Acute kidney failure, unspecified Status: Acute Assessment and Plan: Kidney function improving. Continue to manage per hospitalist recs. (3) Elevated lipase: Code(s): R74.8 - Abnormal levels of other serum enzymes Status: Acute Assessment and Plan: Lipase 93118. (4) Hypokalemia: Code(s): E87.6 - Hypokalemia Status: Resolved Assessment and Plan: Potassium 3.2 today. Oral potassium ordered by hospitalist. Will continue to monitor with daily labs. Plan Discussed patient's case and plan of care with Dr. Beltran. Subjective Subjective Date/Time Seen: 03/19/25 14:01 Interval history: Patient is doing well today. No new complaints. No nausea/vomiting. No abdominal pain. WBC 13.6. Vital signs stable. Lipase 3298. AST and ALT elevated. Patient has been having loose bowel movements. Exam GI: Inspection: non-distended GI Palp: Yes Soft to palpation, No Tenderness to palpation present (GI) and No Guarding due to palpation present (GI) Auscultation: normal bowel sounds Objective Data Vital Signs Vital Signs: Vital Signs - 24 hr 03/18/25 21:01 03/18/25 21:34 03/18/25 22:00 Temperature 97.8 F Pulse Rate 91 91 Respiratory Rate 17 17 Blood Pressure 142/78 H Pulse Oximetry 95 98 95 Oxygen Delivery Room Air Room Air Fraction of Inspired Oxygen 21 03/19/25 05:51 03/19/25 08:35 Temperature 97.5 F L Pulse Rate 81 Respiratory Rate 16 Blood Pressure 105/61 Pulse Oximetry 100 Oxygen Delivery Room Air Fraction of Inspired Oxygen Intake/Output Intake/Output: Intake & Output 03/16/25 03/17/25 03/18/25 03/19/25 23:59 23:59 23:59 23:59 Intake Total 4272.5 4930.0 1526 400 Balance 4272.5 4930.0 1526 400 Meds/Results Medications: Active Medications Generic Name Dose Route Start Last Admin Trade Name Freq PRN Reason Stop Dose Admin Acetaminophen 650 mg 03/16/25 18:48 Acetaminophen 325 Mg Tablet PO Q6H PRN Mild Pain (1-3) or Fever Hydrocodone Bitart/Acetaminophen 1 tab 03/16/25 18:48 Hydrocodone/Acetaminophen (*Crx) 5-325 Mg Tablet PO Q6H PRN Pain Rated 4-6 Ceftriaxone Sodium 2 gm/ 100 mls @ 200 mls/hr 03/18/25 09:00 03/19/25 09:06 Sodium Chloride IVPB Infused Q24H VICTOR HUGO Infusion Metronidazole 500 mg 03/18/25 14:00 03/19/25 05:57 Metronidazole 500 Mg Tablet PO Not Given Q8HR VICTOR HUGO Morphine Sulfate 4 mg 03/16/25 15:52 Morphine Sulfate (*Crx) 4 Mg/Ml Inj IV PUSH Q2H PRN Pain Rated 7-10 Ondansetron HCl 4 mg 03/16/25 15:52 Ondansetron Inj 4 Mg/2 Ml Vial IV PUSH Q4H PRN Nausea Pantoprazole Sodium 40 mg 03/17/25 21:00 03/19/25 08:35 Pantoprazole 40 Mg Tablet PO 40 mg Q12HR VICTOR HUGO Administration Thiamine HCl 100 mg 03/19/25 09:00 03/19/25 08:36 Thiamine Hcl 100 Mg Tablet PO 100 mg QAM VICTOR HUGO Administration Radiology Results: ITS Impressions Upper Quadrant Ultrasound 03/16/25 12:29 IMPRESSION: 1: Gallbladder sludge. 2: Fatty infiltration of the liver. Renal Ultrasound 03/16/25 12:31 IMPRESSION: No hydronephrosis or renal calculi. Findings suggesting medical renal disease. Both ureteral jets are visualized. Abdomen/Pelvis CT 07/29/25 15:23 IMPRESSION: Loss of fatty lobulation of the pancreas which may represent acute pancreatitis (in the appropriate clinical setting). No discrete signs of inflammation within the lesser sac. Hepatosplenomegaly. Nonobstructing 8 mm right renal stone. Chest X-Ray 03/18/25 18:10 IMPRESSION: 1. Small lung volumes with minimal bibasilar atelectasis. MRCP 03/19/25 11:27 IMPRESSION: 1. Normal liver, gallbladder and pancreas with no gallstones and no intra or extrahepatic biliary or pancreatic ductal dilation. 2. Small fat-containing umbilical hernia. 2. Numerous nonspecific small enhancing subcutaneous nodules throughout the abdominal wall which has a wide differential including infectious inflammatory etiologies or neoplasm either benign such as neurofibromas or malignant such as lymphoma or metastatic disease. Labs Labs: Laboratory Results - last 24 hr 03/18/25 03/19/25 03/19/25 21:04 05:21 05:28 WBC 13.6 H RBC 5.00 Hgb 15.4 Hct 43.1 MCV 86.2 MCH 30.8 MCHC 35.7 RDW 12.2 Plt Count 267 MPV 10.0 Immature Gran % (Auto) Not Reportable Neut % (Auto) Not Reportable Lymph % (Auto) Not Reportable [place] % (Auto) Not Reportable Eos % (Auto) Not Reportable Baso % (Auto) Not Reportable Lymph # (Auto) Not Reportable [place] # (Auto) Not Reportable Eos # (Auto) Not Reportable Baso # (Auto) Not Reportable Abs Immat Gran (auto) Not Reportable Absolute Neuts (auto) Not Reportable Absolute Nucleated RBC Not Reportable Total Counted 100 Neutrophils % (Manual) 67 Band Neutrophils % 16 H Lymphocytes % (Manual) 7 L Monocytes % (Manual) 6 Eosinophils % (Manual) 1 Metamyelocytes % 3 Nucleated RBC % Not Reportable Abs Neuts (Manual) 11.28 H Abs Lymphs (Manual) 0.95 L Abs Monocytes (Manual) 0.81 Absolute Eos (Manual) 0.13 Toxic Granulation Present Platelet Estimate Adequate Anisocytosis 1+ Tear Drop Cells 1+ Schistocytes None seen Sodium 132 L Potassium 3.1 L Chloride 98 Carbon Dioxide 27 Anion Gap 7 BUN 25 H Creatinine 1.08 Estim Creat Clear Calc 98 Estimated GFR > 60 Glucose 97 Calcium 8.5 Magnesium 2.2 Total Bilirubin 0.9 AST 110 H ALT 112 H Alkaline Phosphatase 75 Total Protein 6.3 Albumin 3.4 L Lipase 3298 H C. difficile (PCR) Negative Hepatitis A IgM Ab Negative Hep Bs Antigen Negative Hep B Core IgM Ab Negative Hepatitis C Ab Screen Negative
[2025-03-19 14:33] VITALS: BP 115/71; PULSE 87; RESP 16; TEMP 36.5; O2SAT 97
--- NOTE | 2025-03-19 16:51 | P.PNGI_ITS ---
Progress Note: A&P Assessment and Plan (1) Salmonella bacteremia: Code(s): R78.81 - Bacteremia Status: Acute Assessment and Plan: on iv abx and doing much better but pending final sensitivities before he can go home with appropriate treatment (2) Acute renal failure: Code(s): N17.9 - Acute kidney failure, unspecified Status: Acute Assessment and Plan: resolved (3) Nausea and vomiting in adult: Code(s): R11.2 - Nausea with vomiting, unspecified Status: Acute Assessment and Plan: resolved (4) Dehydration: Code(s): E86.0 - Dehydration Status: Acute (5) Biliary sludge: Code(s): K83.8 - Other specified diseases of biliary tract Status: Acute Assessment and Plan: mri normal pancreas elevated liver enzymes probably from bacteremia currently on treatment (6) Abdominal mass: Code(s): R19.00 - Intra-abdominal and pelvic swelling, mass and lump, unspecified site Status: Acute Assessment and Plan: incidental finding and probably benign will need follow-up with pcp Subjective Date/time seen: 03/19/25 16:51 Interval history: overall much better and tolerating diet + salmonella in blood Review of Systems Review of Systems: All systems reviewed & are unremarkable except as noted in HPI and below Exam Const: General: comfortable and no acute distress HENMT: Face/Nose/Sinus: Normal nares present Eyes: General: appearance normal, both eyes and all related structures Neck: Neck: no JVD Resp: Auscultation: clear to auscultation bilaterally Cardio: Rate: regular rate Rhythm: regular rhythm GI: Inspection: non-distended GI Palp: Yes Soft to palpation Skin: General skin exam: normal color Neuro: Speech: normal speech Extrem: General: normal to inspection Psych: Mental Status: mental status grossly normal Objective Data Vital Signs Vital Signs: Vital Signs - 24 hr 03/18/25 21:01 03/18/25 21:34 03/18/25 22:00 Temperature 97.8 F Pulse Rate 91 91 Respiratory Rate 17 17 Blood Pressure 142/78 H Pulse Oximetry 95 98 95 Oxygen Delivery Room Air Room Air Fraction of Inspired Oxygen 21 03/19/25 05:51 03/19/25 08:35 Temperature 97.5 F L Pulse Rate 81 Respiratory Rate 16 Blood Pressure 105/61 Pulse Oximetry 100 Oxygen Delivery Room Air Fraction of Inspired Oxygen Intake/Output Intake/Output: Intake & Output 03/16/25 03/17/25 03/18/25 03/19/25 23:59 23:59 23:59 23:59 Intake Total 4272.5 4930.0 1526 400 Balance 4272.5 4930.0 1526 400 Meds/Results Medications: Active Medications Generic Name Dose Route Start Last Admin Trade Name Freq PRN Reason Stop Dose Admin Acetaminophen 650 mg 03/16/25 18:48 Acetaminophen 325 Mg Tablet PO Q6H PRN Mild Pain (1-3) or Fever Hydrocodone Bitart/Acetaminophen 1 tab 03/16/25 18:48 Hydrocodone/Acetaminophen (*Crx) 5-325 Mg Tablet PO Q6H PRN Pain Rated 4-6 Ceftriaxone Sodium 2 gm/ 100 mls @ 200 mls/hr 03/18/25 09:00 03/19/25 09:06 Sodium Chloride IVPB Infused Q24H VICTOR HUGO Infusion Metronidazole 500 mg 03/18/25 14:00 03/19/25 15:31 Metronidazole 500 Mg Tablet PO 500 mg Q8HR VICTOR HUGO Administration Morphine Sulfate 4 mg 03/16/25 15:52 Morphine Sulfate (*Crx) 4 Mg/Ml Inj IV PUSH Q2H PRN Pain Rated 7-10 Ondansetron HCl 4 mg 03/16/25 15:52 Ondansetron Inj 4 Mg/2 Ml Vial IV PUSH Q4H PRN Nausea Pantoprazole Sodium 40 mg 03/17/25 21:00 03/19/25 08:35 Pantoprazole 40 Mg Tablet PO 40 mg Q12HR VICTOR HUGO Administration Thiamine HCl 100 mg 03/19/25 09:00 03/19/25 08:36 Thiamine Hcl 100 Mg Tablet PO 100 mg QAM VICTOR HUGO Administration Radiology Results: ITS Impressions Upper Quadrant Ultrasound 03/16/25 12:29 IMPRESSION: 1: Gallbladder sludge. 2: Fatty infiltration of the liver. Renal Ultrasound 03/16/25 12:31 IMPRESSION: No hydronephrosis or renal calculi. Findings suggesting medical renal disease. Both ureteral jets are visualized. Abdomen/Pelvis CT 03/16/25 15:23 IMPRESSION: Loss of fatty lobulation of the pancreas which may represent acute pancreatitis (in the appropriate clinical setting). No discrete signs of inflammation within the lesser sac. Hepatosplenomegaly. Nonobstructing 8 mm right renal stone. Chest X-Ray 03/18/25 18:10 IMPRESSION: 1. Small lung volumes with minimal bibasilar atelectasis. MRCP 03/19/25 11:27 IMPRESSION: 1. Normal liver, gallbladder and pancreas with no gallstones and no intra or extrahepatic biliary or pancreatic ductal dilation. 2. Small fat-containing umbilical hernia. 2. Numerous nonspecific small enhancing subcutaneous nodules throughout the abdominal wall which has a wide differential including infectious inflammatory etiologies or neoplasm either benign such as neurofibromas or malignant such as lymphoma or metastatic disease. Labs Labs: Laboratory Results - last 24 hr 03/18/25 03/19/25 03/19/25 21:04 05:21 05:28 WBC 13.6 H RBC 5.00 Hgb 15.4 Hct 43.1 MCV 86.2 MCH 30.8 MCHC 35.7 RDW 12.2 Plt Count 267 MPV 10.0 Immature Gran % (Auto) Not Reportable Neut % (Auto) Not Reportable Lymph % (Auto) Not Reportable [place] % (Auto) Not Reportable Eos % (Auto) Not Reportable Baso % (Auto) Not Reportable Lymph # (Auto) Not Reportable [place] # (Auto) Not Reportable Eos # (Auto) Not Reportable Baso # (Auto) Not Reportable Abs Immat Gran (auto) Not Reportable Absolute Neuts (auto) Not Reportable Absolute Nucleated RBC Not Reportable Total Counted 100 Neutrophils % (Manual) 67 Band Neutrophils % 16 H Lymphocytes % (Manual) 7 L Monocytes % (Manual) 6 Eosinophils % (Manual) 1 Metamyelocytes % 3 Nucleated RBC % Not Reportable Abs Neuts (Manual) 11.28 H Abs Lymphs (Manual) 0.95 L Abs Monocytes (Manual) 0.81 Absolute Eos (Manual) 0.13 Toxic Granulation Present Platelet Estimate Adequate Anisocytosis 1+ Tear Drop Cells 1+ Schistocytes None seen Sodium 132 L Potassium 3.1 L Chloride 98 Carbon Dioxide 27 Anion Gap 7 BUN 25 H Creatinine 1.08 Estim Creat Clear Calc 98 Estimated GFR > 60 Glucose 97 Calcium 8.5 Magnesium 2.2 Total Bilirubin 0.9 AST 110 H ALT 112 H Alkaline Phosphatase 75 Total Protein 6.3 Albumin 3.4 L Lipase 3298 H C. difficile (PCR) Negative Hepatitis A IgM Ab Negative Hep Bs Antigen Negative Hep B Core IgM Ab Negative Hepatitis C Ab Screen Negative
[2025-03-19 21:30] VITALS: PULSE 85; RESP 14; O2SAT 100
[2025-03-19 21:41] VITALS: BP 134/80; PULSE 85; RESP 14; TEMP 36.1; O2SAT 100
[2025-03-20 05:54] VITALS: BP 122/65; PULSE 77; RESP 16; TEMP 36.3; O2SAT 99
[2025-03-20 07:01] LABS: Alanine Aminotransferase 137 U/L (6-50); Albumin Level 3.6 g/dL (3.5-5.1); Alkaline Phosphatase 90 U/L (38-126); Anion Gap 6 mmol/L (4-12); Aspartate Amino Transferase 108 U/L (17-59); Bilirubin,Total 0.8 mg/dL (0.2-1.3); Blood Urea Nitrogen 22 mg/dL (9-20); Calcium 8.9 mg/dL (8.4-10.2); Carbon Dioxide 29 mmol/L (22-30); Chloride 96 mmol/L (98-107); Estimated CRCL calculation 96 ml/min; Estimated Glomerular Filt Rate > 60; Glucose 102 mg/dL (65-110); Potassium 3.4 mmol/L (3.4-5.0); Sodium 131 mmol/L (137-145); Total Protein 6.5 g/dL (6.3-8.2)
[2025-03-20] MEDS: THIAMINE HCL 100 MG TABLET PO (09:31)
[2025-03-20] MEDS: cefTRIAXone 2 GM in SODIUM CHLORIDE 0.9% IV 100 ML 200 ML IVPB (09:31)
[2025-03-20] MEDS: PANTOPRAZOLE 40 MG TABLET PO (09:31)
--- NOTE | 2025-03-20 13:36 | PM.IMPN ---
Progress Note: A&P Assessment and Plan (1) Pancreatitis: Qualifiers: Acute pancreatitis complication: uninfected necrosis Chronicity: acute Pancreatitis type: unspecified pancreatitis type Qualified Code(s): K85.91 - Acute pancreatitis with uninfected necrosis, unspecified Code(s): K85.90 - Acute pancreatitis without necrosis or infection, unspecified Status: Acute Assessment and Plan: Patient with acute pancreatitis. No prior history. Lipase 2500 CT abd/pelvis: Loss of fatty lobulation of the pancreas which may represent acute pancreatitis. No discrete signs of inflammation within the lesser sac. Hepatosplenomegaly. Nonobstructing 8 mm right renal stone. RUQ US showing GB sludge and fatty liver. No medications that would predispose patient to pancreatitis noted. Denied heavy/regular alcohol use. He was made NPO and IV fluids started after 3L bolus AST 61, ALT 59, total bilirubin 1.9 TG 380 GI and General surgery consulted. No surgical intervention indicated at this time, but may need outpatient cholecystectomy. Repeat LFTs better with normal TBili and AP. AST/ALT slightly higher. BCx positive GNB one anaerobic bottle only -> Salmonella Lipase down slightly to 3300. MRCP showing normal liver, GB and pancreas. No GS and no intrahepatic and extrahepatic biliary or pancreatitic ductal dilation. Diet advanced Diarrhea from Salmonella. Stool studies pending. Continue abx with Rocephin but stop Flagyl. Follow up on sensitivities. Called lab and sensitivities not available yet (2) Bacteremia: Code(s): R78.81 - Bacteremia Status: Acute Assessment and Plan: As above (3) Abdominal mass: Code(s): R19.00 - Intra-abdominal and pelvic swelling, mass and lump, unspecified site Status: Acute Assessment and Plan: MRCP also showing numerous nonspecific small enhancing subcutaneous nodules throughout the abdominal wall which has a wide differential including infectious inflammatory etiologies or neoplasm either benign such as neurofibromas or malignant such as lymphoma or metastatic disease. Suspect there are benign since no evidence of splenomegaly or lymphadenopathy. Will have him follow up with oncology for possible evaluation (4) Acute kidney injury: Code(s): N17.9 - Acute kidney failure, unspecified Status: Acute Assessment and Plan: Creatinine 4.05, BUN 98, GFR 17. Renal US showing findings suggestive of medical renal disease. No hydronephrosis. Suspect kidney injury secondary to hypovolemia/dehydration as evidenced by an elevated hemoglobin and electrolyte derangements. Consider an underlying etiology. Started on IV fluids. Cr better at 1.08 Continue to trend renal function, electrolytes and UOP. (5) Biliary sludge: Code(s): K83.8 - Other specified diseases of biliary tract Status: Acute Assessment and Plan: As above. General surgery consulted and recommended continuation of abx. No immediate surgical intervention indicated at this time. (6) Hypokalemia: Code(s): E87.6 - Hypokalemia Status: Resolved Assessment and Plan: K+ 2.6 upon admission and this was replaced Mag >2.0 Follow and replace as needed. (7) Hyponatremia: Code(s): E87.1 - Hypo-osmolality and hyponatremia Status: Acute Assessment and Plan: Na 120 upon admission. Related to dehydration. IV fluids as mentioned above. Sodium climbing slowly as expected. Follow (8) Kidney stone on right side: Code(s): N20.0 - Calculus of kidney Status: Acute Assessment and Plan: A 8 mm nonobstructing calculus within the interpolar region of the right kidney with no hydronephrosis or additional renal calculi are detected bilaterally noted on CT. UA showed no signs of infection or blood Follow clinically Plan Hyperglycemia - Glucose noted to be 151 upon admission felt secondary to poor p.o. intake and stress response. HgbA1c 5.1. Bandemia - band count was 21% on admission (WBC 10.1K). [place] to be related to bacteremia. Bandemia improved with improved condition Prednisone and valacyclovir was listed on his home med list but this was incorrect. DVT Prophylaxis: SCDs Code Status: Full code Subjective Date/time seen: 03/20/25 13:36 Interval history: 34yo male with GERD here for abdominal pain. No complaints. Still having diarrhea but improved. Exam Narrative: AF 97.4 122/65 77 16 99% ra Gen - NARD Chest - CTA bilaterally, nml RR CV - RRR S1/S2 Abd - Soft, NT/ND, Positive BS Ext - No pedal edema Psych - Nml mood and affect Skin - Warm and dry Objective Data Vital Signs Vital Signs: Vital Signs - 24 hr 03/19/25 14:33 03/19/25 21:30 03/19/25 21:41 Temperature 97.7 F 97.0 F L Pulse Rate 87 85 85 Respiratory Rate 16 14 14 Blood Pressure 115/71 134/80 Pulse Oximetry 97 100 100 Oxygen Delivery Room Air Fraction of Inspired Oxygen 21 03/20/25 05:54 03/20/25 08:00 Temperature 97.4 F L Pulse Rate 77 Respiratory Rate 16 Blood Pressure 122/65 Pulse Oximetry 99 Oxygen Delivery Room Air Fraction of Inspired Oxygen Intake/Output Intake/Output: Intake & Output 03/17/25 03/18/25 03/19/25 03/20/25 23:59 23:59 23:59 23:59 Intake Total 4930.0 1526 400 760 Balance 4930.0 1526 400 760 Meds/Results Medications: Active Medications Generic Name Dose Route Start Last Admin Trade Name Freq PRN Reason Stop Dose Admin Acetaminophen 650 mg 03/16/25 18:48 Acetaminophen 325 Mg Tablet PO Q6H PRN Mild Pain (1-3) or Fever Hydrocodone Bitart/Acetaminophen 1 tab 03/16/25 18:48 Hydrocodone/Acetaminophen (*Crx) 5-325 Mg Tablet PO Q6H PRN Pain Rated 4-6 Ceftriaxone Sodium 2 gm/ 100 mls @ 200 mls/hr 03/18/25 09:00 03/20/25 09:31 Sodium Chloride IVPB 200 mls/hr Q24H VICTOR HUGO Administration Metronidazole 500 mg 03/18/25 14:00 03/20/25 06:19 Metronidazole 500 Mg Tablet PO 500 mg Q8HR VICTOR HUGO Administration Morphine Sulfate 4 mg 03/16/25 15:52 Morphine Sulfate (*Crx) 4 Mg/Ml Inj IV PUSH Q2H PRN Pain Rated 7-10 Ondansetron HCl 4 mg 03/16/25 15:52 Ondansetron Inj 4 Mg/2 Ml Vial IV PUSH Q4H PRN Nausea Pantoprazole Sodium 40 mg 03/17/25 21:00 03/20/25 09:31 Pantoprazole 40 Mg Tablet PO 40 mg Q12HR VICTOR HUGO Administration Thiamine HCl 100 mg 03/19/25 09:00 03/20/25 09:31 Thiamine Hcl 100 Mg Tablet PO 100 mg QAM VICTOR HUGO Administration Radiology Results: ITS Impressions Upper Quadrant Ultrasound 03/16/25 12:29 IMPRESSION: 1: Gallbladder sludge. 2: Fatty infiltration of the liver. Renal Ultrasound 03/16/25 12:31 IMPRESSION: No hydronephrosis or renal calculi. Findings suggesting medical renal disease. Both ureteral jets are visualized. Abdomen/Pelvis CT 03/16/25 15:23 IMPRESSION: Loss of fatty lobulation of the pancreas which may represent acute pancreatitis (in the appropriate clinical setting). No discrete signs of inflammation within the lesser sac. Hepatosplenomegaly. Nonobstructing 8 mm right renal stone. Chest X-Ray 03/18/25 18:10 IMPRESSION: 1. Small lung volumes with minimal bibasilar atelectasis. MRCP 03/19/25 11:27 IMPRESSION: 1. Normal liver, gallbladder and pancreas with no gallstones and no intra or extrahepatic biliary or pancreatic ductal dilation. 2. Small fat-containing umbilical hernia. 2. Numerous nonspecific small enhancing subcutaneous nodules throughout the abdominal wall which has a wide differential including infectious inflammatory etiologies or neoplasm either benign such as neurofibromas or malignant such as lymphoma or metastatic disease. Labs Labs: Laboratory Results - last 24 hr 03/20/25 05:41 Sodium 131 L Potassium 3.4 Chloride 96 L Carbon Dioxide 29 Anion Gap 6 BUN 22 H Creatinine 1.10 Estim Creat Clear Calc 96 Estimated GFR > 60 Glucose 102 Calcium 8.9 Total Bilirubin 0.8 AST 108 H ALT 137 H Alkaline Phosphatase 90 Total Protein 6.5 Albumin 3.6
[2025-03-20 14:17] VITALS: BP 130/85; PULSE 93; RESP 16; TEMP 36.4; O2SAT 99
--- NOTE | 2025-03-20 14:26 | WPDGIPROGNO ---
Progress Note: A&P Assessment and Plan (1) Salmonella bacteremia: Code(s): R78.81 - Bacteremia Status: Acute Assessment and Plan: on iv abx and doing much better still pending final sensitivities before he can go home with appropriate treatment will follow as needed (2) Acute renal failure: Code(s): N17.9 - Acute kidney failure, unspecified Status: Acute Assessment and Plan: resolved (3) Nausea and vomiting in adult: Code(s): R11.2 - Nausea with vomiting, unspecified Status: Acute Assessment and Plan: resolved (4) Dehydration: Code(s): E86.0 - Dehydration Status: Acute Assessment and Plan: tread, from sepsis on admission (5) Biliary sludge: Code(s): K83.8 - Other specified diseases of biliary tract Status: Acute Assessment and Plan: mri normal pancreas elevated liver enzymes probably from bacteremia currently on treatment (6) Abdominal mass: Code(s): R19.00 - Intra-abdominal and pelvic swelling, mass and lump, unspecified site Status: Acute Assessment and Plan: incidental finding and probably benign will need follow-up with pcp Subjective Date/time seen: 03/20/25 14:26 Interval history: no more pain diarrhea almost stopped good appetite Review of Systems Review of Systems: All systems reviewed & are unremarkable except as noted in HPI and below Exam Const: General: comfortable and no acute distress HENMT: Face/Nose/Sinus: Normal nares present Eyes: General: appearance normal, both eyes and all related structures Neck: Neck: no JVD Resp: Auscultation: clear to auscultation bilaterally Cardio: Rate: regular rate Rhythm: regular rhythm GI: Inspection: non-distended GI Palp: Yes Soft to palpation and No Tenderness to palpation present (GI) Auscultation: normal bowel sounds Skin: General skin exam: normal color Neuro: General: gait normal Speech: normal speech Extrem: General: normal to inspection Psych: Mental Status: mental status grossly normal Objective Data Vital Signs Vital Signs: Vital Signs - 24 hr 03/19/25 14:33 03/19/25 21:30 03/19/25 21:41 Temperature 97.7 F 97.0 F L Pulse Rate 87 85 85 Respiratory Rate 16 14 14 Blood Pressure 115/71 134/80 Pulse Oximetry 97 100 100 Oxygen Delivery Room Air Fraction of Inspired Oxygen 03/20/25 05:54 03/20/25 08:00 Temperature 97.4 F L Pulse Rate 77 Respiratory Rate 16 Blood Pressure 122/65 Pulse Oximetry 99 Oxygen Delivery Room Air Fraction of Inspired Oxygen Intake/Output Intake/Output: Intake & Output 03/17/25 03/18/25 03/19/25 03/20/25 23:59 23:59 23:59 23:59 Intake Total 4930.0 1526 400 760 Balance 4930.0 1526 400 760 Meds/Results Medications: Active Medications Generic Name Dose Route Start Last Admin Trade Name Freq PRN Reason Stop Dose Admin Acetaminophen 650 mg 03/16/25 18:48 Acetaminophen 325 Mg Tablet PO Q6H PRN Mild Pain (1-3) or Fever Hydrocodone Bitart/Acetaminophen 1 tab 03/16/25 18:48 Hydrocodone/Acetaminophen (*Crx) 5-325 Mg Tablet PO Q6H PRN Pain Rated 4-6 Ceftriaxone Sodium 2 gm/ 100 mls @ 200 mls/hr 03/18/25 09:00 03/20/25 09:31 Sodium Chloride IVPB 200 mls/hr Q24H VICTOR HUGO Administration Morphine Sulfate 4 mg 03/16/25 15:52 Morphine Sulfate (*Crx) 4 Mg/Ml Inj IV PUSH Q2H PRN Pain Rated 7-10 Ondansetron HCl 4 mg 03/16/25 15:52 Ondansetron Inj 4 Mg/2 Ml Vial IV PUSH Q4H PRN Nausea Pantoprazole Sodium 40 mg 03/17/25 21:00 03/20/25 09:31 Pantoprazole 40 Mg Tablet PO 40 mg Q12HR VICTOR HUGO Administration Thiamine HCl 100 mg 03/19/25 09:00 03/20/25 09:31 Thiamine Hcl 100 Mg Tablet PO 100 mg QAM VICTOR HUGO Administration Radiology Results: ITS Impressions Upper Quadrant Ultrasound 03/16/25 12:29 IMPRESSION: 1: Gallbladder sludge. 2: Fatty infiltration of the liver. Renal Ultrasound 03/16/25 12:31 IMPRESSION: No hydronephrosis or renal calculi. Findings suggesting medical renal disease. Both ureteral jets are visualized. Abdomen/Pelvis CT 03/16/25 15:23 IMPRESSION: Loss of fatty lobulation of the pancreas which may represent acute pancreatitis (in the appropriate clinical setting). No discrete signs of inflammation within the lesser sac. Hepatosplenomegaly. Nonobstructing 8 mm right renal stone. Chest X-Ray 03/18/25 18:10 IMPRESSION: 1. Small lung volumes with minimal bibasilar atelectasis. MRCP 03/19/25 11:27 IMPRESSION: 1. Normal liver, gallbladder and pancreas with no gallstones and no intra or extrahepatic biliary or pancreatic ductal dilation. 2. Small fat-containing umbilical hernia. 2. Numerous nonspecific small enhancing subcutaneous nodules throughout the abdominal wall which has a wide differential including infectious inflammatory etiologies or neoplasm either benign such as neurofibromas or malignant such as lymphoma or metastatic disease. Labs Labs: Laboratory Results - last 24 hr 03/20/25 05:41 Sodium 131 L Potassium 3.4 Chloride 96 L Carbon Dioxide 29 Anion Gap 6 BUN 22 H Creatinine 1.10 Estim Creat Clear Calc 96 Estimated GFR > 60 Glucose 102 Calcium 8.9 Total Bilirubin 0.8 AST 108 H ALT 137 H Alkaline Phosphatase 90 Total Protein 6.5 Albumin 3.6
[2025-03-20] MEDS: POTASSIUM CHLORIDE 20 MEQ ER TABLET 40 MEQ PO (14:36)
--- NOTE | 2025-03-20 17:05 | P.DS_ITS ---
DS: Admitting Diagnosis Discharge Date 03/20/25 Admitting Diagnosis Abdominal pain DS: Discharge Diagnosis Discharge Diagnosis (1) Pancreatitis: Qualifiers: Acute pancreatitis complication: uninfected necrosis Chronicity: acute Pancreatitis type: unspecified pancreatitis type Qualified Code(s): K85.91 - Acute pancreatitis with uninfected necrosis, unspecified Code(s): K85.90 - Acute pancreatitis without necrosis or infection, unspecified Status: Acute (2) Salmonella bacteremia: Code(s): R78.81 - Bacteremia Status: Acute (3) Abdominal mass: Code(s): R19.00 - Intra-abdominal and pelvic swelling, mass and lump, unspecified site Status: Acute (4) Acute kidney injury: Code(s): N17.9 - Acute kidney failure, unspecified Status: Acute (5) Biliary sludge: Code(s): K83.8 - Other specified diseases of biliary tract Status: Acute (6) Hypokalemia: Code(s): E87.6 - Hypokalemia Status: Resolved (7) Hyponatremia: Code(s): E87.1 - Hypo-osmolality and hyponatremia Status: Acute (8) Kidney stone on right side: Code(s): N20.0 - Calculus of kidney Status: Acute DS: Summary Hospital Course Reason for hospitalization: 34yo male with GERD here for abdominal pain. Please see H&P for details. Hospital Course: Patient presents with abdominal pain and found to have acute pancreatitis. No prior history. Lipase 2500. CT abd/pelvis: Loss of fatty lobulation of the pancreas which may represent acute pancreatitis. No discrete signs of inflammation within the lesser sac. Hepatosplenomegaly. Nonobstructing 8 mm right renal stone. RUQ US showing GB sludge and fatty liver. No medications that would predispose patient to pancreatitis noted. Denied heavy/regular alcohol use. He was started on Rocephin and Flagyl. He was made NPO and IV fluids started after 3L bolus. AST 61, ALT 59, total bilirubin 1.9. TG 380. Acute hepatitis panel negative. GI and General surgery consulted. No surgical intervention indicated at this time, but may need outpatient cholecystectomy. Repeat LFTs better with normal TBili and AP. BCx positive that grew salmonella. He was having diarrhea felt caused by Salmonella. CDiff toxin negative. Stool studies pending. Lipase climbed to 3360 before trending down. MRCP showing normal liver, GB and pancreas. No GS and no intrahepatic and extrahepatic biliary or pancreatic ductal dilation. MRCP also showing numerous nonspecific small enhancing subcutaneous nodules throughout the abdominal wall which has a wide differential including infectious inflammatory etiologies or neoplasm either benign such as neurofibromas or malignant such as lymphoma or metastatic disease. Suspect these are benign since no evidence of splenomegaly or lymphadenopathy; GI felt these are benign as well and recommended he follow up with PCP for possible further evaluation. Diet advanced. Patient also with MATTI with creatinine 4.05, BUN 98, GFR 17 on admission. Renal US showing findings suggestive of medical renal disease but no hx to suggest this. No hydronephrosis. Suspect kidney injury secondary to hypovolemia/dehydration as evidenced by an elevated hemoglobin and electrolyte derangements. Started on IV fluids and Cr better at 1.1. Patient also with hypokalemia and hyponatremia felt related to dehydration and diarrhea. Electroly te abnormalities were corrected. He had a 8 mm nonobstructing calculus within the interpolar region of the right kidney with no hydronephrosis or additional renal calculi are detected bilaterally noted on CT. UA showed no signs of infection or blood. He also had hyperglycemia wiht Glucose noted to be 151 upon admission felt secondary to poor p.o. intake and stress response. HgbA1c 5.1. Bandemia noted with band count was 21% on admission (WBC 10.1K). [place] to be related to bacteremia. Bandemia improved with improved condition. Discharge instructions discussed in detail with patient. All questions answered. He overall did well and was able to be discharged home on 03/20/25. Status at Discharge Cognitive/behavioral status at discharge: stable Time Spent with Patient Time attestation: Total time spent providing and/or coordinating discharge services: 34 minutes Time spent: Greater than 30 minutes Exam Narrative: AF 97.4 122/65 77 16 99% ra Gen - NARD Chest - CTA bilaterally, nml RR CV - RRR S1/S2 Abd - Soft, NT/ND, Positive BS Ext - No pedal edema Psych - Nml mood and affect Skin - Warm and dry DS: Data Data Completed and Pending Labs on day of discharge: Labs from last 24 hours 03/20/25 05:41 Sodium 131 L Potassium 3.4 Chloride 96 L Carbon Dioxide 29 Anion Gap 6 BUN 22 H Creatinine 1.10 Estim Creat Clear Calc 96 Estimated GFR > 60 Glucose 102 Calcium 8.9 Total Bilirubin 0.8 AST 108 H ALT 137 H Alkaline Phosphatase 90 Total Protein 6.5 Albumin 3.6 Preliminary micro results at discharge 03/16/25 12:23 Blood Culture - Preliminary Blood Salmonella species 03/16/25 12:44 Blood Culture - Preliminary Blood Discharge Plan Discharge Attending physician on discharge: Je Panda Consulting providers: Sky Werner; Stef Beltran Discharging Clinician: Je Panda Anticipated Discharge Date/Time: 03/20/25 17:16 Patient Disposition: Home Activity: as tolerated Diet: low fat Discharge Instructions: Contact your doctor or call 911 and come to the Emergency Room if you fevers or other worrisome symptoms. Avoid NSAIDs (ibuprofen, naproxen, Aleve). Tylenol is safe to take. Follow-up with your primary care provider in 1-2 weeks. Please call for appointment. You were found to have small enhancing subcutaneous nodules throughout the abdominal wall as we discussed. Please discuss this finding with your doctor. Thank you for using [facility] for your health care needs. Patient Instructions: Antibiotic Form Patient Language: Romansh Stand Alone Forms: General Discharge Information Follow-up/Referrals: Evelina,SOULEYMANE Silva [Primary Care Provider] - Call for Appointment Discharge Medications: New levofloxacin 750 mg tablet 750 mg PO DAILY 7 Days Qty: 7 0RF pantoprazole 40 mg Tablet,Delayed Release (Dr/Ec) 40 mg PO DAILY PRN (Reason: Acid Reflux) Qty: 30 0RF Discontinued valacyclovir 1 gram tablet 1,000 mg PO Q8H 7 Days Qty: 21 0RF prednisone 20 mg tablet 60 mg PO DAILY 6 Days Qty: 18 0RF omeprazole 10 mg capsule,delayed release(DR/EC) 20 mg PO PRN Date of admission: 03/16/25 16:50 Primary Care Provider: EvelinaLuiza Admitting Provider: Wilfredo Montelongo Attending physician on admission: Wilfredo Montelongo Condition: Stable Hospitalist MIPS Heart Failure (Exclusion) Patient has history of Heart Transplant or Left Ventricular Assistive Device?: No IF YES, STOP HERE Heart Failure (Qualifier) Patient has current or prior documentation of LVEF less than or equal to 40%, or mod/servere depressed LVSF?: No IF NO, STOP HERE
--- NOTE | 2025-03-24 08:58 | PC.NURSE ---
Stool cx is negative. Dr. Amarilys gracia.
== END 2025-03-20 18:01 | disposition home or self-care (01) | DRG 724 ==
LOC: ANHED 10:46 → ANH3MEDSUR 16:41
PROVIDERS: Student in an Organized Health Care Education/Training Program; Admitting Provider Internal Medicine; Emergency Provider Emergency Medicine; PCP Physician Assistant; Visit Provider Internal Medicine
DX: A02.9 Salmonella infection, unspecified (principal); K85.90 Acute pancreatitis without necrosis or infection, unspecified; R78.81 Bacteremia; N17.9 Acute kidney failure, unspecified; E86.0 Dehydration; E87.1 Hypo-osmolality and hyponatremia; E87.6 Hypokalemia; N20.0 Calculus of kidney; K83.8 Other specified diseases of biliary tract; K21.9 Gastro-esophageal reflux disease without esophagitis; R73.9 Hyperglycemia, unspecified; R22.2 Localized swelling, mass and lump, trunk; Z72.0 Tobacco use
CPT/HCPCS: 36415; 71046; 74176; 74183; 76376; 76705; 76775; 80048; 80053; 80061; 80074; 81001; 83036; 83605; 83690; 83735; 85025; 87040; 87045; 87046; 87427; 87493; 96365; 96366; 96367; 96375; 96376; 99285; A9270; A9577; G0378; G0379; J0696; J1836; J2270; J2405; J3411; J3480; J7030